=== PATIENT | female | born 1955 | race Caucasian/White ===

== ENCOUNTER 2017-04-10 09:12 | Emergency (ER) | payer OTHER ==
[~2017-04-10] VITALS: Ht 157.5 cm; Wt 68.2 kg
[2017-04-10 10:06] LABS: BASO % 0.4 % (0.0-1.0); EOS # 0.1 10^3/uL (0.0-0.50); IMMATURE GRANULOCYTE % 0.2 % (0-0); LYMPH # 1.4 10^3/uL (1.5-4.5); LYMPH % 17.2 % (24.0-44.0); MEAN CORPUSCULAR VOLUME 91.1 fl (80.0-96.0); MONO # 0.5 10^3/uL (0.0-0.8); MONO % 5.6 % (0.0-5.0); NEUTROPHILS # 6.1 10^3/uL (1.8-7.7); NEUTROPHILS % 75.6 % (36.0-66.0); PLATELET COUNT, AUTOMATED 184 10^3/uL (150-450); RED CELL DISTRIBUTION WIDTH 11.6 % (11.5-14.5)
[2017-04-10] MEDS ORDERED: NS 1,000 ML IV ONE (10:30)
[2017-04-10] MEDS ORDERED: LEXA1TAB PO (10:33)
[2017-04-10 10:40] LABS: ANION GAP 8 MEQ/L (8-16); BLOOD UREA NITROGEN 14 MG/DL (7-18); CALCIUM LEVEL 8.7 MG/DL (8.8-10.2); CARBON DIOXIDE LEVEL 29 MEQ/L (21-32); CHLORIDE LEVEL 105 MEQ/L (98-107); CREATININE FOR GFR 0.85 MG/DL (0.55-1.02); GLOMERULAR FILTRATION RATE > 60.0 (>45); GLUCOSE, FASTING 122 MG/DL (80-110); MAGNESIUM LEVEL 1.8 MG/DL (1.8-2.4); POTASSIUM SERUM 3.9 MEQ/L (3.5-5.1); SODIUM LEVEL 142 MEQ/L (136-145)
[2017-04-10 12:01] VITALS: BP 164/77
--- NOTE | 2017-04-10 14:43 | ECGEPIP ---
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
--- NOTE | 2017-04-11 08:25 | ECGEPIP ---
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
--- NOTE | 2017-04-11 08:25 | ECGEPIP ---
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
--- NOTE | 2017-04-13 20:55 | HOLTMON ---
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 Rhythm was sinus for those episodes--one PAC was seen with the second episode. Heart rate variability was normal. There were rare PVC's and a moderate number of PAC's but no significant runs. One couplet PAC/PVC was seen (page 20). No significant ST events or pauses. No atrial fibrillation was seen. Unremarkable Holter monitor. Electronically Signed On 04-13-2017 20:54:35 EST by Chase Ontiveros
== END 2017-04-10 12:15 | disposition home or self-care (01) ==
LOC: M ED 09:12
DX: R55 Syncope and collapse (principal); F41.9 Anxiety disorder, unspecified; Z79.899 Other long term (current) drug therapy; Z88.5 Allergy status to narcotic agent; Z88.8 Allergy status to other drugs, medicaments and biological substances

== ENCOUNTER 2017-04-13 09:48 | Emergency (ER) | payer OTHER ==
[~2017-04-13] VITALS: Ht 157.5 cm; Wt 68.2 kg
[~2017-04-13 09:48] MED LIST: LEXA1TAB PO
[2017-04-13] MEDS ORDERED: ESCI20TA (09:58)
[2017-04-13] MEDS ORDERED: VITA100067 PO (09:58)
[2017-04-13 11:22] LABS: ABG BASE EXCESS 2.7 (-2.0-2.0); ABG HCO3 24.7 MEQ/L (22.0-26.0); ABG PARTIAL PRESSURE CO2 30.4 mmHg (35.0-45.0); ABG PARTIAL PRESSURE O2 87.2 mmHg (75.0-100.0); ABG STANDARD HCO3 26.9 MEQ/L (22.0-26.0); ABG TOTAL CO2 25.6 MEQ/L (23.0-31.0); ABG pH (ARTERIAL) 7.527 UNITS (7.350-7.450)
[2017-04-13 11:28] LABS: BASO % 0.6 % (0.0-1.0); EOS % 0.3 % (0.0-3.0); IMMATURE GRANULOCYTE % 0.4 % (0-0); LYMPH # 0.9 10^3/uL (1.5-4.5); LYMPH % 12.8 % (24.0-44.0); MEAN CORPUSCULAR HEMOGLOBIN 31.2 pg (27.0-33.0); MEAN CORPUSCULAR HGB CONC 34.8 g/dl (32.0-36.5); MEAN CORPUSCULAR VOLUME 89.7 fl (80.0-96.0); MONO # 0.3 10^3/uL (0.0-0.8); MONO % 3.7 % (0.0-5.0); NEUTROPHILS # 5.5 10^3/uL (1.8-7.7); NEUTROPHILS % 82.2 % (36.0-66.0); PLATELET COUNT, AUTOMATED 217 10^3/uL (150-450); RED CELL DISTRIBUTION WIDTH 11.7 % (11.5-14.5); WHITE BLOOD COUNT 6.7 10^3/uL (4.0-10.0)
[2017-04-13 12:01] LABS: ANION GAP 6 MEQ/L (8-16); BLOOD UREA NITROGEN 9 MG/DL (7-18); CALCIUM LEVEL 9.1 MG/DL (8.8-10.2); CARBON DIOXIDE LEVEL 28 MEQ/L (21-32); CHLORIDE LEVEL 108 MEQ/L (98-107); CREATININE FOR GFR 0.76 MG/DL (0.55-1.02); GLOMERULAR FILTRATION RATE > 60.0 (>45); GLUCOSE, FASTING 136 MG/DL (80-110); POTASSIUM SERUM 3.5 MEQ/L (3.5-5.1); SODIUM LEVEL 142 MEQ/L (136-145)
--- NOTE | 2017-04-13 12:20 | REP ---
CHEST, TWO VIEWS : COMPARISON: 08/25/2015 There is no evidence of acute infiltrate. No pleural effusion is seen. The heart is normal in size. The mediastinal silhouette is unremarkable. The visualized osseous structures are intact. There are mild degenerative changes of the spine. IMPRESSION: No acute pulmonary disease. Signed by Joshua Barnett MD 04/13/2017 12:42 P
[2017-04-13 13:24] VITALS: BP 179/81
--- NOTE | 2017-04-14 05:42 | ECGEPIP ---
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
== END 2017-04-13 13:27 | disposition home or self-care (01) ==
LOC: M ED 09:48
DX: J06.9 Acute upper respiratory infection, unspecified (principal); F41.9 Anxiety disorder, unspecified; R06.4 Hyperventilation

== ENCOUNTER → 2017-04-22 | Outpatient (REF) | payer OTHER ==
[~2017-04-22] MED LIST changes: +ASPI81TA85 PO; +CARA1TAB6 PO; +ESCI20TA PO; +LEXA1TAB2 PO; +PANT40TA2 PO; +PROT1TAB2 PO; +SUCR1TA PO; +VITA100066 PO; +VITA100067 PO
[2017-04-22 15:20] LABS: BASO % 0.4 % (0.0-1.0); EOS % 0.3 % (0.0-3.0); IMMATURE GRANULOCYTE % 0.3 % (0-0); LYMPH # 1.7 10^3/uL (1.5-4.5); LYMPH % 24.7 % (24.0-44.0); MEAN CORPUSCULAR HEMOGLOBIN 30.8 pg (27.0-33.0); MEAN CORPUSCULAR HGB CONC 33.4 g/dl (32.0-36.5); MEAN CORPUSCULAR VOLUME 92.2 fl (80.0-96.0); MONO # 0.4 10^3/uL (0.0-0.8); MONO % 5.1 % (0.0-5.0); NEUTROPHILS # 4.8 10^3/uL (1.8-7.7); NEUTROPHILS % 69.2 % (36.0-66.0); PLATELET COUNT, AUTOMATED 279 10^3/uL (150-450); RED CELL DISTRIBUTION WIDTH 11.7 % (11.5-14.5); WHITE BLOOD COUNT 6.9 10^3/uL (4.0-10.0)
[2017-04-22 15:28] LABS: ALBUMIN/GLOBULIN RATIO 1.33 (1.00-1.93); ALKALINE PHOSPHATASE 91 U/L (45-117); ALT/SGPT 24 U/L (12-78); ANION GAP 8 MEQ/L (8-16); AST/SGOT 18 U/L (7-37); BILIRUBIN,TOTAL 0.6 MG/DL (0.2-1.0); BLOOD UREA NITROGEN 9 MG/DL (7-18); CALCIUM LEVEL 9.3 MG/DL (8.8-10.2); CARBON DIOXIDE LEVEL 31 MEQ/L (21-32); CHLORIDE LEVEL 103 MEQ/L (98-107); CREATININE FOR GFR 0.86 MG/DL (0.55-1.02); GLOMERULAR FILTRATION RATE > 60.0 (>45); GLUCOSE, FASTING 100 MG/DL (80-110); POTASSIUM SERUM 3.8 MEQ/L (3.5-5.1); SODIUM LEVEL 142 MEQ/L (136-145)
== END ==
LOC: M SFHCPLAZ 13:45
PROVIDERS: ATTEND Nurse Practitioner Family
DX: R05 Cough (principal); R07.89 Other chest pain

== ENCOUNTER → 2017-04-22 | Outpatient (CLI) | payer OTHER ==
--- NOTE | 2017-04-22 15:22 | REP ---
CT chest without contrast: History: Chest pain. Comparison chest x-ray April 13, 2017. CT findings: There is a noncalcified granuloma in the right lower lobe posteriorly. This shows a central pattern of calcification and a maximum transverse diameter of 16 mm. No other significant pulmonary nodule is seen. No infiltrate or pleural effusion is seen. There is a granulomatous calcification in the right infrahilar region. No hilar adenopathy is seen. No evidence of mediastinal mass or adenopathy. Normal adrenals are seen. There are calcified gallstones in the dependent portion of the gallbladder. Bone window settings show no bony destructive lesion. Impression: No active cardiopulmonary disease. Old granulomatous changes right base. Cholelithiasis. Signed by Néstor Joyce MD 04/22/2017 04:09 P
== END ==
LOC: M RAD 14:41
PROVIDERS: ATTEND Nurse Practitioner Family
DX: R07.89 Other chest pain (principal)

== ENCOUNTER 2017-04-23 08:43 | Inpatient (IN) | payer OTHER ==
[~2017-04-23] VITALS: Ht 157.5 cm; Wt 65.9 kg
[~2017-04-23 08:43] MED LIST changes: -ASPI81TA85 PO; -CARA1TAB6 PO; -LEXA1TAB2 PO; -PANT40TA2 PO; -PROT1TAB2 PO; -SUCR1TA PO; -VITA100066 PO
[2017-04-23] MEDS ORDERED: ASPI81TA85 PO (08:54)
[2017-04-23] MEDS ORDERED: ONDANSETRON 4MG/2ML VIAL (J2405) IV ONE (09:15)
[2017-04-23] MEDS ORDERED: NS 1,000 ML IV ONE ×2 (09:15→12:30)
[2017-04-23 09:45] LABS: BASO % 0.5 % (0.0-1.0); EOS % 0.4 % (0.0-3.0); IMMATURE GRANULOCYTE % 0.3 % (0-0); LYMPH # 1.4 10^3/uL (1.5-4.5); LYMPH % 18.8 % (24.0-44.0); MEAN CORPUSCULAR HGB CONC 34.1 g/dl (32.0-36.5); MEAN CORPUSCULAR VOLUME 90.9 fl (80.0-96.0); MONO # 0.4 10^3/uL (0.0-0.8); MONO % 5.1 % (0.0-5.0); NEUTROPHILS # 5.6 10^3/uL (1.8-7.7); NEUTROPHILS % 74.9 % (36.0-66.0); PLATELET COUNT, AUTOMATED 278 10^3/uL (150-450); RED CELL DISTRIBUTION WIDTH 11.8 % (11.5-14.5); WHITE BLOOD COUNT 7.5 10^3/uL (4.0-10.0)
[2017-04-23 10:11] LABS: ALBUMIN 4.1 GM/DL (3.2-5.2); ALBUMIN/GLOBULIN RATIO 1.24 (1.00-1.93); ALKALINE PHOSPHATASE 92 U/L (45-117); ALT/SGPT 22 U/L (12-78); AMYLASE 46 U/L (25-115); ANION GAP 7 MEQ/L (8-16); AST/SGOT 19 U/L (7-37); BILIRUBIN,DIRECT 0.1 MG/DL (0.0-0.2); BILIRUBIN,TOTAL 0.8 MG/DL (0.2-1.0); BLOOD UREA NITROGEN 9 MG/DL (7-18); CALCIUM LEVEL 9.6 MG/DL (8.8-10.2); CARBON DIOXIDE LEVEL 31 MEQ/L (21-32); CHLORIDE LEVEL 103 MEQ/L (98-107); CREATININE FOR GFR 0.89 MG/DL (0.55-1.02); GLOMERULAR FILTRATION RATE > 60.0 (>45); GLUCOSE, FASTING 122 MG/DL (80-110); POTASSIUM SERUM 4.1 MEQ/L (3.5-5.1); SODIUM LEVEL 141 MEQ/L (136-145); TOTAL PROTEIN 7.4 GM/DL (6.4-8.2)
--- NOTE | 2017-04-23 10:18 | REP ---
Clinical: Nausea and vomiting. Technique: Barnett scale ultrasound using curved array transducer. Findings: The gallbladder demonstrates multiple mobile gallstones without wall thickening or pericholecystic fluid. No sonographic Mayorga's sign was elicited. A small 3 mm choledocholith in the common bile duct cannot be excluded. There is no associated bile duct dilatation and the common bile duct measures 5.4 mm diameter. The liver and pancreas are normal in contour, size, and echogenicity without focal hepatic or pancreatic lesions identified. The right kidney is normal in reniform shape without hydronephrosis and measures 9.4 x 3.9 x 3.6 cm. No ascites. Visualized portions of the abdominal aorta normal. Impression: Cholelithiasis and possible choledocholithiasis without further sonographic evidence to suggest acute cholecystitis. Signed by Leonides Sosa MD 04/23/2017 10:09 A
[2017-04-23] MEDS ORDERED: LORazepam 2 MG/ML VIAL (J2060) IV STA ×2 (10:49→11:00)
[2017-04-23] MEDS ORDERED: PROMETHAZINE INJ 25 MG/ML VIAL (J2550) IV ONE (12:30)
[2017-04-23] MEDS ORDERED: NS 1,000 ML IV SCH (14:07)
--- NOTE | 2017-04-23 14:36 | HPEPDOC ---
General Date of Admission Apr 23, 2017 at 14:07 Primary Care Physician: ROXANA STEPHENSON NP Attending Physician: Dell Judge MD Chief Complaint The patient is a 62-year-old female admitted with a reason for visit of Choledocholithiasis. History of Present Illness 62-year-old female with past medical history of anxiety/depression, vitamin D deficiency, and allergic rhinitis presents to the ER for the chief complaint of abdominal pain over the last 3-4 days. The patient states that the abdominal pain mostly in the upper quadrants, started suddenly, and was associated with a few episodes of nonbilious vomiting. She describes the abdominal pain as sharp, 8 out of 10 in intensity at its worst, intermittent in frequency, with no specific aggravating or alleviating factors. She reports that she has not been able to keep any food down due to nausea/vomiting. She denies any associated fevers, chills, chest pain, sick contacts, recent travel, or any other acute complaints. In the ER, the patient was noted to have a normal white blood cell count, and LFTs plus lipase/amylase levels within normal limits. However, an ultrasound of the right upper quadrant revealed cholelithiasis and possible choledocholithiasis. GI was consulted in the ER, and has recommended to obtain an MRCP. The patient will be admitted to the hospitalist service for further evaluation and management. Home Medications Scheduled Aspirin (Aspir-81) 81 Mg Tab, 81 MG PO DAILY, (Reported) Escitalopram Oxalate (Escitalopram Oxalate) 20 Mg Tab, 20 MG PO QHS, (Reported) Vitamin D (Vitamin D) 1,000 Unit Cap, 1,000 UNIT PO DAILY, (Reported) Allergies Coded Allergies: Codeine (Verified Allergy, Unknown, SOB LIGHTHEADED, 04/10/17) Duloxetine (Verified Allergy, Unknown, RASH, 04/10/17) Past Medical History Medical History As noted in HPI. Surgical History OVARIAN CYST COLONOSCOPY - (INTERNAL HEMORRHOIDS, MULTIPLE DIVERTICULA), DR. 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 Review of Symptoms Other systems 10 point review of systems negative unless otherwise specified in HPI. Physical Examination General Exam: Positive: Alert, Cooperative, No Acute Distress, Other (anxious appearing) ENT Exam: Positive: Atraumatic, Negative: Mucous membr. moist/pink (dry mucous membranes) Neck Exam: Negative: JVD Chest Exam: Positive: Clear to auscultation, Normal air movement Heart Exam: Positive: Rate Normal, Normal S1, Normal S2 Abdomen Exam: Positive: Soft, Tenderness (mild tenderness to deep palpation in the upper quadrants. No rebound tenderness, guarding, or rigidity noted.) Extremity Exam: Negative: Tenderness, Swelling Psych Exam: Positive: Oriented x 3 Vital Signs Vital Signs Date Time Temp Pulse Resp B/P (MAP) Pulse Ox O2 Delivery O2 Flow Rate FiO2 04/23/17 13:22 98.4 70 18 158/71 (100) 99 Room Air Laboratory Data Labs 24H Laboratory Tests 2 04/23/17 09:36: Immature Granulocyte % (Auto) 0.3H, White Blood Count 7.5, Red Blood Count 4.96 , Hemoglobin 15.4, Hematocrit 45.1, Mean Corpuscular Volume 90.9, Mean Corpuscular Hemoglobin 31.0, Mean Corpuscular Hemoglobin Concent 34.1, Red Cell Distribution Width 11.8, Platelet Count 278, Neutrophils (%) (Auto) 74.9H, Lymphocytes (%) (Auto) 18.8L, Monocytes (%) (Auto) 5.1H, Eosinophils (%) (Auto) 0.4, Basophils (%) (Auto) 0.5, Neutrophils # (Auto) 5.6, Lymphocytes # (Auto) 1.4L, Monocytes # (Auto) 0.4, Eosinophils # (Auto) 0.0, Basophils # (Auto) 0.0, Immature Granulocyte # (Auto) 0.0, Nucleated Red Blood Cells % (auto) 0.0, Urine Appearance CLEAR, Urine Color COLORLESS, Urine pH 6.0, Urine Specific [place] 1.001L, Urine Protein NEGATIVE, Urine Glucose (UA) NEGATIVE, Urine Ketones NEGATIVE, Urine Urobilinogen 0.2, Urine Bilirubin NEGATIVE, Urine Leukocyte Esterase NEGATIVE, Urine Blood NEGATIVE, Urine Nitrite NEGATIVE, Urine WBC (Auto) 0, Urine RBC (Auto) 0, Urine Hyaline Casts (Auto) 0, Urine Bacteria (Auto) NEGATIVE, Urine Squamous Epithelial Cells 0, Urine Sperm (Auto) , Anion Gap 7L, Glomerular Filtration Rate > 60.0, Lactic Acid Level 2.0, Calcium Level 9.6, Aspartate Amino Transf (AST/SGOT) 19, Alanine Aminotransferase (ALT/SGPT) 22, Alkaline Phosphatase 92, Total Bilirubin 0.8, Direct Bilirubin 0.1, Total Protein 7.4, Albumin 4.1, Albumin/Globulin Ratio 1.24, Amylase Level 46, Lipase 121 CBC/BMP Laboratory Tests 04/23/17 09:36 Red Blood Count 4.96, Mean Corpuscular Volume 90.9, Mean Corpuscular Hemoglobin 31.0, Mean Corpuscular Hemoglobin Concent 34.1, Red Cell Distribution Width 11.8 , Neutrophils (%) (Auto) 74.9 H, Lymphocytes (%) (Auto) 18.8 L, Monocytes (%) ( Auto) 5.1 H, Eosinophils (%) (Auto) 0.4, Basophils (%) (Auto) 0.5, Neutrophils # (Auto) 5.6, Lymphocytes # (Auto) 1.4 L, Monocytes # (Auto) 0.4, Eosinophils # (Auto) 0.0, Basophils # (Auto) 0.0 Plan / VTE VTE Prophylaxis Ordered?: Yes Plan Plan RUQ Pain 2/2 Cholelithiasis, possible Choledocholithiasis U/S of the Gallbladder noted GI consulted in the ER--We will obtain an MRCP LFTs, Amylase, Lipase wnl WBC wnl, patient afebrile We will empirically cover the patient with Meropenem IVF Hydration ordered We will keep the patient NPO for now Anxiety/Depression Ativan prn DVT Prophylaxis SCDs/TEDs (No AC in case of intervention) The patient will be admitted to the service of the [facility]. KENN JOHNSON MD Apr 23, 2017 14:36
[2017-04-23 15:15] VITALS: BP 154/68
[2017-04-23] MEDS: MEROPENEM INJ 1 GM in APPROPRIATE DILUENT 1 EA IV SCH ×2 (15:45→22:42)
[2017-04-23] MEDS ORDERED: ACETAMINOPHEN TAB 650MG DOSE (2X325MG) PO PRN (16:15)
[2017-04-23 20:00] VITALS: BP 158/74
--- NOTE | 2017-04-23 20:10 | REPUSA ---
MRI of the abdomen without contrast Clinical History: gallstones. Pain. Technique: Multiecho, Multiplanar MRI images of the abdomen were obtained without administration of c ontrast. Comparison: None. Findings: Several small gallstones are seen within the gallbladder. There is no gallbladder wall thi ckening or pericholecystic free fluid. The biliary and pancreatic ducts are unremarkable. The common bile duct measures 3 mm in diameter and is within normal limits. No obstructing lesion is identified. The liver, spleen, pancreas, kidneys, and adrenal glands are unremarkable. The aorta demonstrates no rmal caliber and contour. There is no evidence of abdominal lymphadenopathy or ascites. The osseous s tructures are within normal limits. Impression: Cholelithiasis without evidence of acute cholecystitis. Otherwise unremarkable study.
[2017-04-23 23:03] VITALS: BP 133/67
[2017-04-24 02:00] VITALS: BP 132/66
[2017-04-24 05:56] LABS: MEAN CORPUSCULAR HGB CONC 33.6 g/dl (32.0-36.5); MEAN CORPUSCULAR VOLUME 92.4 fl (80.0-96.0); PLATELET COUNT, AUTOMATED 213 10^3/uL (150-450); WHITE BLOOD COUNT 5.4 10^3/uL (4.0-10.0)
[2017-04-24 06:00] VITALS: BP 157/70
[2017-04-24] MEDS: MEROPENEM INJ 1 GM in APPROPRIATE DILUENT 1 EA IV SCH ×3 (06:09→23:18)
[2017-04-24] MEDS: ONDANSETRON 4MG/2ML VIAL (J2405) IV PRN ×2 (06:20→18:09)
[2017-04-24 06:36] LABS: ALBUMIN 2.9 GM/DL (3.2-5.2); ALBUMIN/GLOBULIN RATIO 1.12 (1.00-1.93); ALKALINE PHOSPHATASE 65 U/L (45-117); ALT/SGPT 17 U/L (12-78); ANION GAP 8 MEQ/L (8-16); AST/SGOT 17 U/L (7-37); BILIRUBIN,TOTAL 0.8 MG/DL (0.2-1.0); BLOOD UREA NITROGEN 7 MG/DL (7-18); CALCIUM LEVEL 7.8 MG/DL (8.8-10.2); CARBON DIOXIDE LEVEL 29 MEQ/L (21-32); CHLORIDE LEVEL 110 MEQ/L (98-107); CREATININE FOR GFR 0.74 MG/DL (0.55-1.02); GLOMERULAR FILTRATION RATE > 60.0 (>45); GLUCOSE, FASTING 86 MG/DL (80-110); MAGNESIUM LEVEL 2.2 MG/DL (1.8-2.4); POTASSIUM SERUM 3.4 MEQ/L (3.5-5.1); SODIUM LEVEL 147 MEQ/L (136-145); TOTAL PROTEIN 5.5 GM/DL (6.4-8.2)
[2017-04-24] MEDS: LORazepam 2 MG/ML VIAL (J2060) IV PRN (08:21)
--- NOTE | 2017-04-24 09:49 | IPNPDOC ---
Subjective Date Seen The patient was seen on 04/24/17. Subjective Chief Complaint/HPI The patient is a 62-year-old female admitted with a reason for visit of Choledocholithiasis. Constitutional: Denies: Chills ENT: Denies: Head Aches Skin: Denies: Rash Pulmonary: Denies: Dyspnea, Cough, Pleuritic Chest Pain Cardiovascular: Denies: Chest Pain, Palpitations, Orthopnea Gastrointestinal: Reports: Nausea (limits ability to eat, taking only crackers over past couple of weeks), Abdominal Pain Genitourinary: Denies: Dysuria, Incontinence Hematologic: Denies: Bruising Endocrine: Denies: Polydipsia Neurological: Reports: Weakness (frequently first thing in am, feels sweaty and lightheaded with standing.) Objective Physical Examination General Exam: Positive: Alert, Cooperative, No Acute Distress, Other (anxious appearing) ENT Exam: Positive: Atraumatic, Negative: Mucous membr. moist/pink (dry mucous membranes) Neck Exam: Negative: JVD Chest Exam: Positive: Clear to auscultation, Normal air movement Heart Exam: Positive: Rate Normal, Normal S1, Normal S2 Abdomen Exam: Positive: Soft, Tenderness (mild tenderness to deep palpation in the upper quadrants. No rebound tenderness, guarding, or rigidity noted.) Extremity Exam: Negative: Tenderness, Swelling Psych Exam: Positive: Oriented x 3 Assessment /Plan Problems (1) Cholelithiasis Status: Acute Response to Treatment: Stable Problem Specific Plan: Consult Specialist Problem Text: U/S showed stones in GB and maybe common duct but MRCP was clear. LFT's were normal, so no surprise. WBC not increased. She has been having symptoms of food intolerance with nausea, sweating. No exercise limitations or exercise triggered symptoms (2) Vasovagal syncope Status: Acute Response to Treatment: Stable Problem Text: Had fainting episode that seems consistent with this diagnosis recently. Becomes sweaty and light headed with current RUQ symptoms (3) Anxiety reaction Status: Acute Response to Treatment: Stable Problem Text: lorazepam ordered q12 prn. will also continue her usual escitalopram (4) Mixed hyperlipidemia Status: Chronic Response to Treatment: Stable Plan/VTE VTE Prophylaxis Ordered?: Yes VS, I&O, 24H, Fishbone Vital Signs/I&O Vital Signs Date Time Temp Pulse Resp B/P (MAP) Pulse Ox O2 Delivery O2 Flow Rate FiO2 04/24/17 06:00 97.5 85 18 157/70 (99) 96 Room Air I&O- Last 24 Hours up to 6 AM 04/25/17 06:00 Intake Total 50 ml Balance 50 ml Laboratory Data 24H LABS Laboratory Tests 2 04/24/17 05:25: Nucleated Red Blood Cells % (auto) 0.0, Anion Gap 8, Glomerular Filtration Rate > 60.0, Blood Urea Nitrogen 7, Creatinine 0.74, Sodium Level 147H, Potassium Level 3.4L, Chloride Level 110H, Carbon Dioxide Level 29, Calcium Level 7.8#L, Aspartate Amino Transf (AST/SGOT) 17, Alanine Aminotransferase (ALT/SGPT) 17, Alkaline Phosphatase 65, Total Bilirubin 0.8, Total Protein 5.5#L, Albumin 2.9#L , Magnesium Level 2.2, Albumin/Globulin Ratio 1.12 CBC/BMP Laboratory Tests 04/24/17 05:25 Red Blood Count 4.22, Mean Corpuscular Volume 92.4, Mean Corpuscular Hemoglobin 31.0, Mean Corpuscular Hemoglobin Concent 33.6, Red Cell Distribution Width 12.0 , Calcium Level 7.8 #L, Aspartate Amino Transf (AST/SGOT) 17, Alanine Aminotransferase (ALT/SGPT) 17, Alkaline Phosphatase 65, Total Bilirubin 0.8, Total Protein 5.5 #L, Albumin 2.9 #L Microbiology Microbiology 04/23/17 Blood Culture, Received Pending 04/23/17 Blood Culture, Received Pending Babar Edmonds MD Apr 24, 2017 09:49
[2017-04-24 10:00] VITALS: BP 144/68
[2017-04-24 14:00] VITALS: BP 142/69
[2017-04-24] MEDS ORDERED: PANT40TA2 PO (16:56)
--- NOTE | 2017-04-24 17:22 | DSES ---
DATE OF ADMISSION: 04/23/2017 DATE OF DISCHARGE: 04/24/2017 Patient was admitted overnight from the emergency department (ED). Hospitalist worked her up in the ED. Workup demonstrated presence of gallstone. There is some suggestion that the stone might have been involved being the common duct; therefore, magnetic resonance cholangiopancreatography (MRCP) was also ordered that was completed showing no ductal obstruction. Her liver tests were normal. She has morning nausea. She has had episodes of vasodepressor syncope, nausea, sweating with episodes of lightheadedness and presyncope. She came to the ED with these complaints over the past 2 weeks or so. On examination this morning, I found to have some right upper quadrant tenderness on deep palpation but no true positive Mayorga's. Ultrasound did not show pericolic fluid or gallbladder swelling. She does not have typical postprandial biliary colic. Dr. Templeton saw her in consultation and found that she was likely to do well if sent home; therefore, patient will be discharge this evening if she tolerates her evening meal without difficulty, and if she fails, if she develops nausea postprandially, she will be kept overnight. She will be sent home on Protonix 40 mg by mouth daily with a plan to follow up with Dr. Templeton in 1 week with interval low-fat diet. Activity will be as tolerated. DISCHARGE DIAGNOSES: 1. Cholelithiasis. 2. Gastritis. 3. Vasodepressor presyncope. She will go home on pantoprazole 40 mg daily. Continue her vitamin D and escitalopram. Aspirin 81 mg will be stopped until the full nature of her upper gastrointestinal (GI) problem can be elucidated.
--- NOTE | 2017-04-24 17:56 | CR ---
DATE OF CONSULTATION: 04/24/2017 The patient is a 62-year-old female whom I saw originally with her , who was supposed to be getting an inguinal hernia repair, and at that time she fainted in the preoperative holding area. When she fainted she had blood pressures that were persistently decreased for a significant amount of time. Did not complain of any chest pain and has started her workup for a cardiac issue. It seems as though it was a simple fainting episode that just was prolonged compared to normal. She was taking some medication for a cold as well as continues on her antianxiety medication. Since that time, however, she has not had a poor appetite, has been nauseated, and not able to eat very well. She has been fatigued and came into the emergency room with abdominal pain. She stated that she did not have true pain, mostly just nausea, although the report at the time of her admissions states that she was complaining of pain. She is such an anxious individual, I am unsure if her history is completely reliable here today, given that she desires discharge. In any case, was worked up in the emergency room and was admitted having a normal white count, normal liver function tests; however, an ultrasound showed some gallstones as well as possible choledocholithiasis. She ended up having an magnetic resonance cholangiopancreatography (MRCP), which showed no evidence of choledocholithiasis. She continues to have some intermittent nausea without any right upper quadrant pain. She does not complain of any specific biliary colic. No pain radiating to her right shoulder blade area. She has not had any acholic stools. No bilirubinuria. PAST MEDICAL HISTORY: Significant for: 1. History of ovarian cyst. 2. History of colonoscopy. 3. History of anxiety/depression. 4. History of allergic rhinitis with ongoing symptoms of upper respiratory tract infection. PHYSICAL EXAMINATION: Reveals a 62-year-old female who looks stated age. HEENT: Unremarkable. NECK: Supple without adenopathy. LUNGS: Clear to auscultation. HEART: Regular. ABDOMEN: Soft, nondistended, nontender. EXTREMITIES: Warm and well perfused. White count is normal. Liver function tests (LFTs) are normal. IMPRESSION AND PLAN: The patient has some gallstones, but given her nausea and her upper gastrointestinal (GI) complaints, I wonder if she has some element of gastritis that is contributing to her nausea issues. Unfortunately, she denies any specific right upper quadrant pain at this time associated with food intake, and although it sounds as though initially on admission she had a history that was much more consistent with this, today she seems to be less convinced that she had any of those specific findings. Thus at this point, it is suggestive of some possible gastritis that has been ongoing with exacerbation by some postnasal drip, medications she is taking for her cold, and a poor by mouth intake. At this point, I would like to start her on some proton-pump inhibitors, and I do feel that once she is cleared from a cardiology standpoint this Thursday, proceeding with an upper endoscopy is reasonable. If this is normal, then will discuss possible laparoscopic cholecystectomy as an outpatient. At this point as well, the patient is extremely anxious about proceeding with any type of operative intervention and seems almost to tachypneic by the end of our discussion as we start to talk about this more. This may suggest that she may need some of her antianxiety medications changed to some extent. I will defer to primary care concerning this issue.
[2017-04-24 18:00] VITALS: BP 146/69
[2017-04-24] MEDS: ESCITALOPRAM OXALATE 10 MG TAB (LEXAPRO) PO SCH (21:53)
[2017-04-24] MEDS: POTASSIUM CHLORIDE 10 MEQ SR TABLET PO SCH (21:54)
[2017-04-24] MEDS: PANTOPRAZOLE 40MG INJ (PROTONIX) (C9113) IV SCH (21:57)
[2017-04-24 22:00] VITALS: BP 138/78
[2017-04-25 02:00] VITALS: BP 142/77
[2017-04-25] MEDS: ONDANSETRON 4MG/2ML VIAL (J2405) IV PRN (05:42)
[2017-04-25] MEDS: LORazepam 2 MG/ML VIAL (J2060) IV PRN ×2 (05:51→22:14)
[2017-04-25 06:00] VITALS: BP 148/72
[2017-04-25 06:07] LABS: MEAN CORPUSCULAR HEMOGLOBIN 31.3 pg (27.0-33.0); MEAN CORPUSCULAR HGB CONC 34.5 g/dl (32.0-36.5); MEAN CORPUSCULAR VOLUME 90.8 fl (80.0-96.0); PLATELET COUNT, AUTOMATED 241 10^3/uL (150-450); RED CELL DISTRIBUTION WIDTH 11.7 % (11.5-14.5); WHITE BLOOD COUNT 7.1 10^3/uL (4.0-10.0)
[2017-04-25 06:28] LABS: ALBUMIN 3.6 GM/DL (3.2-5.2); ALBUMIN/GLOBULIN RATIO 1.29 (1.00-1.93); ALKALINE PHOSPHATASE 76 U/L (45-117); ALT/SGPT 19 U/L (12-78); ANION GAP 8 MEQ/L (8-16); AST/SGOT 19 U/L (7-37); BILIRUBIN,TOTAL 0.8 MG/DL (0.2-1.0); BLOOD UREA NITROGEN 7 MG/DL (7-18); CARBON DIOXIDE LEVEL 28 MEQ/L (21-32); CHLORIDE LEVEL 109 MEQ/L (98-107); CREATININE FOR GFR 0.96 MG/DL (0.55-1.02); GLOMERULAR FILTRATION RATE > 60.0 (>45); GLUCOSE, FASTING 104 MG/DL (80-110); MAGNESIUM LEVEL 2.4 MG/DL (1.8-2.4); POTASSIUM SERUM 3.9 MEQ/L (3.5-5.1); SODIUM LEVEL 145 MEQ/L (136-145); TOTAL PROTEIN 6.4 GM/DL (6.4-8.2)
[2017-04-25] MEDS: MEROPENEM INJ 1 GM in APPROPRIATE DILUENT 1 EA IV SCH (06:42)
--- NOTE | 2017-04-25 07:36 | ECGEPIP ---
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
[2017-04-25] MEDS: PANTOPRAZOLE 40MG INJ (PROTONIX) (C9113) IV SCH ×2 (09:15→20:55)
[2017-04-25] MEDS: POTASSIUM CHLORIDE 10 MEQ SR TABLET PO SCH ×2 (09:15→20:55)
[2017-04-25] MEDS ORDERED: GI COCKTAIL 50ML BTL(HYOSCYAMINE/MAALOX/LIDOCAINE VISCOUS)(1:3:1) PO PRN (09:45)
[2017-04-25 10:00] VITALS: BP 134/64
[2017-04-25] MEDS ORDERED: SUCRALFATE 1 GM TAB PO ONE (11:00)
[2017-04-25] MEDS ORDERED: GASTROGRAFIN SOLUTION 30ML PO ONE (11:00)
--- NOTE | 2017-04-25 11:27 | IPNPDOC ---
Subjective Date Seen The patient was seen on 04/25/17. Subjective Chief Complaint/HPI The patient is a 62-year-old female admitted with a reason for visit of Choledocholithiasis. Events since last encounter Patient complaining of centrally located abdominal pain which started this morning after she ate some cereal and banana. Constitutional: Denies: Chills, Fever Pulmonary: Reports: Dyspnea (secondary to anxiety) Cardiovascular: Denies: Chest Pain Gastrointestinal: Reports: Nausea, Abdominal Pain, Denies: Vomiting Psych: Reports: Anxiety Objective Physical Examination General Exam: Positive: Alert, Cooperative, Mild Distress Chest Exam: Positive: Clear to auscultation, Normal air movement, Negative: Rales, Rhonchi, Wheezing Heart Exam: Positive: Rate Normal, Normal S1, Normal S2, Negative: Gallops, Murmurs, Rubs Abdomen Exam: Positive: Soft, Tenderness (epigastric) Extremity Exam: Negative: Tenderness, Swelling Psych Exam: Positive: Anxiety, Oriented x 3 Assessment /Plan Problems (1) Cholelithiasis Status: Acute Response to Treatment: Stable Problem Specific Plan: Consult Specialist Problem Text: 04/25: Patient has been unable to tolerate food, case was discussed with Dr. Templeton. Orders were placed for Carafate 1 g by mouth every before meals, daily at bedtime, GI cocktail, CT of abdomen and pelvis without contrast followed by IV and PO contrast. 04/24: U/S showed stones in GB and maybe common duct but MRCP was clear. LFT's were normal, so no surprise. WBC not increased. She has been having symptoms of food intolerance with nausea, sweating. No exercise limitations or exercise triggered symptoms (2) Vasovagal syncope Status: Acute Response to Treatment: Stable Problem Text: 04/24: Had fainting episode that seems consistent with this diagnosis recently. Becomes sweaty and light headed with current RUQ symptoms (3) Anxiety reaction Status: Acute Response to Treatment: Stable Problem Text: 04/25: Patient with continued anxiety, we will increase her dose of lorazepam to 0.5 mg IV every 6 hours when necessary 04/24: lorazepam ordered q12 prn. will also continue her usual escitalopram (4) Mixed hyperlipidemia Status: Chronic Response to Treatment: Stable Plan/VTE VTE Prophylaxis Ordered?: Yes Plan Diet: Make NPO (after midnight) VS, I&O, 24H, Fishbone Vital Signs/I&O Vital Signs Date Time Temp Pulse Resp B/P (MAP) Pulse Ox O2 Delivery O2 Flow Rate FiO2 04/25/17 10:00 99.0 78 18 134/64 (87) 96 Room Air I&O- Last 24 Hours up to 6 AM 04/26/17 06:00 Intake Total 190 ml Balance 190 ml Laboratory Data 24H LABS Laboratory Tests 2 04/25/17 05:50: Nucleated Red Blood Cells % (auto) 0.0, Anion Gap 8, Glomerular Filtration Rate > 60.0, Blood Urea Nitrogen 7, Creatinine 0.96, Sodium Level 145, Potassium Level 3.9, Chloride Level 109H, Carbon Dioxide Level 28, Calcium Level 9.0#, Aspartate Amino Transf (AST/SGOT) 19, Alanine Aminotransferase (ALT/SGPT) 19, Alkaline Phosphatase 76, Total Bilirubin 0.8, Total Protein 6.4, Albumin 3.6#, Magnesium Level 2.4, Albumin/Globulin Ratio 1.29 CBC/BMP Laboratory Tests 04/25/17 05:50 Red Blood Count 4.79, Mean Corpuscular Volume 90.8, Mean Corpuscular Hemoglobin 31.3, Mean Corpuscular Hemoglobin Concent 34.5, Red Cell Distribution Width 11.7 , Calcium Level 9.0 #, Aspartate Amino Transf (AST/SGOT) 19, Alanine Aminotransferase (ALT/SGPT) 19, Alkaline Phosphatase 76, Total Bilirubin 0.8, Total Protein 6.4, Albumin 3.6 # Microbiology Microbiology 04/23/17 Blood Culture - Preliminary, Resulted No growth after 24 hours . All specim... 04/23/17 Blood Culture - Preliminary, Resulted No growth after 24 hours . All specim... GME ATTESTATION GME ATTESTATION My faculty preceptor for this patient encounter was physically present during the encounter and was fully available. All aspects of the patient interview, examination, medical decision making process, and medical care plan development were reviewed and approved by the faculty preceptor. The faculty preceptor is aware and concurs with the plan as stated in the body of this note and will attest to such by his/her cosignature. ATTENDING NOTE I saw and examined Ms. Velazquez this morning; I discussed her care with Dr. Bourne and I agree with his note as documented. I discussed her care with Dr. Templeton. If she responds to carafate and a GI cocktail and improves and is able to tolerate good PO intake, we may be able to discharge tomorrow. Otherwise she may need to go for an EGD and/or cholecystectomy tomorrow based on results of her CT scan and how she is doing clinically - we will make her NPO after midnight in case surgery is needed. 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 I reassured her that she is unlikely to become addicted after using low-dose Ativan on PRN basis for a few days. She asked whether she could be switched to hydroxyzine - I offered to add this if that is her preference, but ultimately she decided to stay on Ativan. (KES) ROSE BOURNE DO Apr 25, 2017 11:27 LD ESTRADA MD Apr 25, 2017 13:37
[2017-04-25] MEDS ORDERED: GASTROGRAFIN SOLUTION 30ML (Q9963) PO ONE (11:30)
[2017-04-25] MEDS ORDERED: ISOVUE-370 76% 100ML VIAL (Q9967) As Ordered ONE (12:24)
[2017-04-25 13:15] VITALS: BP 138/67
[2017-04-25] MEDS ORDERED: MEROPENEM INJ 1 GM in APPROPRIATE DILUENT 1 EA IV SCH (15:00)
[2017-04-25 16:00] VITALS: BP 132/68
[2017-04-25] MEDS ORDERED: LORazepam 2 MG/ML VIAL (J2060) IV PRN (16:15)
[2017-04-25] MEDS: SUCRALFATE 1 GM TAB PO SCH ×2 (17:45→20:55)
[2017-04-25 20:00] VITALS: BP 135/69
--- NOTE | 2017-04-25 20:03 | IPN ---
DATE: 04/25/2017 SUBJECTIVE: The patient overall has had no right upper quadrant pain. She stated to the other physicians that she had some epigastric pain, although she really does not complain of pain so much as she complains of nausea, and is "not hungry." In general, I started her on minimal proton pump inhibitors yesterday, trying not to overwhelm her with too many changes given her significant and severe anxiety. However, today do feel that we need to be full court press on gastrointestinal (GI) treatment and possible evaluation. I discussed this with primary that we should give her GI cocktail, start her on some Carafate, and proceed with an upper GI. This was started earlier in the day and the patient overall has tolerated some crackers and some soup which she states is even more than she has been having lately, and states that she really is not having any significant problems since starting a new medications. I discussed with her this afternoon the findings of the CT scan which I interpreted. However, the final report is still pending. I instructed to go easy with dinner and see how she does. I did put her on the schedule for a laparoscopic cholecystectomy tomorrow if she did not tolerate food tonight. If she is tolerating food tonight, I do feel that she should be able to be discharged home. Unfortunately with her significant and severe anxiety, I do feel that if she tolerates food tonight and she wants to be discharged, that we can see how she does with breakfast and then plan on cancelling operative intervention for her. I am still not convinced that she has a classic history for symptomatic biliary colic, but it is reasonable to discuss this further with her. I contacted the nursing floor, discussed with nursing that she tolerated dinner, and at this point without any significant pain or discomfort, I anticipate that she will be able to be progressed or continue on a regular diet in the morning and be discharged home. However, if she has some recurrence of her nausea, discomfort overnight, we may reevaluate that in the morning and possibly proceed with laparoscopic cholecystectomy with a possible upper endoscopy if she still has ill-defined issues. I think overall her major issues are anxiety associated, and that needs to be addressed and makes her medical care very difficult. She will need that evaluated/followed up as an outpatient.
[2017-04-25] MEDS: ESCITALOPRAM OXALATE 10 MG TAB (LEXAPRO) PO SCH (20:54)
[2017-04-26] VITALS: BP 128/67
[2017-04-26 04:00] VITALS: BP 122/56
[2017-04-26 06:54] LABS: MEAN CORPUSCULAR HEMOGLOBIN 31.1 pg (27.0-33.0); MEAN CORPUSCULAR HGB CONC 34.1 g/dl (32.0-36.5); MEAN CORPUSCULAR VOLUME 91.2 fl (80.0-96.0); PLATELET COUNT, AUTOMATED 239 10^3/uL (150-450); RED CELL DISTRIBUTION WIDTH 11.8 % (11.5-14.5); WHITE BLOOD COUNT 7.8 10^3/uL (4.0-10.0)
--- NOTE | 2017-04-26 07:24 | REP ---
CT ABDOMEN AND PELVIS WITH CONTRAST: HISTORY: Abdominal pain. CONTRAST: Isovue-370, 75 mL. COMPARISON: 12/27/2010 Calcifications are present in the gallbladder consistent with cholelithiasis. The liver, pancreas, spleen, adrenal glands and kidneys are normal in appearance. There is no mass, adenopathy or free fluid. A 9 mm calcified granuloma is present in the right lower lobe. The visualized left lung is clear. Diverticula are present in the descending and sigmoid colon. The urinary bladder and uterus are normal in appearance. IMPRESSION: 1. Cholelithiasis. 2. Diverticulosis. 3. Old granulomatous disease. Signed by Cresencio Collins MD 04/26/2017 08:51 A
[2017-04-26 07:25] LABS: ALBUMIN 3.8 GM/DL (3.2-5.2); ALBUMIN/GLOBULIN RATIO 1.36 (1.00-1.93); ALKALINE PHOSPHATASE 78 U/L (45-117); ALT/SGPT 19 U/L (12-78); ANION GAP 7 MEQ/L (8-16); AST/SGOT 15 U/L (7-37); BILIRUBIN,TOTAL 0.8 MG/DL (0.2-1.0); BLOOD UREA NITROGEN 10 MG/DL (7-18); CALCIUM LEVEL 9.3 MG/DL (8.8-10.2); CARBON DIOXIDE LEVEL 30 MEQ/L (21-32); CHLORIDE LEVEL 107 MEQ/L (98-107); CREATININE FOR GFR 0.88 MG/DL (0.55-1.02); GLOMERULAR FILTRATION RATE > 60.0 (>45); GLUCOSE, FASTING 110 MG/DL (80-110); POTASSIUM SERUM 4.3 MEQ/L (3.5-5.1); SODIUM LEVEL 144 MEQ/L (136-145); TOTAL PROTEIN 6.6 GM/DL (6.4-8.2)
[2017-04-26 08:00] VITALS: BP 151/65
[2017-04-26] MEDS: PANTOPRAZOLE 40MG INJ (PROTONIX) (C9113) IV SCH (08:23)
[2017-04-26] MEDS: LORazepam 2 MG/ML VIAL (J2060) IV PRN (08:23)
[2017-04-26] MEDS: SUCRALFATE 1 GM TAB PO SCH (09:52)
[2017-04-26] MEDS: POTASSIUM CHLORIDE 10 MEQ SR TABLET PO SCH (09:52)
[2017-04-26] MEDS ORDERED: SUCR1TA PO (11:34)
--- NOTE | 2017-04-26 13:51 | IPN ---
DATE: 03/27/2017 Patient overall did quite well with her low-fat diet last night and has not had anymore epigastric pain, discomfort since that time. She is not having any fevers or chills and her white count continues to be within normal limits with being afebrile. Her liver function tests (LFTs) are still normal. Her nausea and epigastric discomfort, which she has vague description of, is better than it was previously. Her abdomen is still nontender, nondistended. IMPRESSION/PLAN: Patient has probable gastritis and she is being treated with proton pump inhibitors as well as Carafate, and I feel that is reasonable treatment for her. I would be glad to see her in a couple weeks and then we can decide whether to proceed with an upper endoscopy as an outpatient first or to proceed with additional treatment of her gallstones. At this point, I still think that she has asymptomatic gallstones. but given her very vague description of her abdominal pain, etc., it may be that she has some mild symptoms that she cannot isolate from the generalized nausea that she has. In any case, we will deal with this as an outpatient. More importantly, I do feel that she needs further treatment for her anxiety issues. Otherwise, perioperative treatment for her is going to be very difficult. She will have chronic anxiety associated with the preprocedure workup as well as the procedure itself and then postprocedure will be anxious about anything that is occurring to her, which even maybe normal postoperative changes.
--- NOTE | 2017-04-26 19:48 | DS.PDOC ---
Discharge Summary General Date of Admission Apr 23, 2017 at 14:07 Date of Discharge 04/26/17 Primary Care Physician: ROXANA HALL NP Attending Physician: NATACHA PURCELL MD Specialist/Consultants Involve: Bubba Templeton Jr Discharge Summary Consults: Gastroenterology General Surgery: Dr. Bubba Templeton Discharge diagnosis: 1. Gastritis 2. Cholelithiasis 3. Vasovagal Syncope Secondary diagnosis: 1. Anxiety 2. Depression 3. Vitamin D Deficiency 4. Allergic Rhinitis Hospital course: 62 yo F presented to [facility] ED on 04/23/17 for cc of abdominal pain 3-4 days prior to presentation located in the upper abdominal quadrants. Pain was sudden in onset and associated with some episodes of nonbilious vomiting. Abdominal was reported to be intermittent with no aggravating or alleviating factors. Was reported to be sharp. Patient was also c/o of nausea/vomiting and being intolerant to PO intake. In the ER, workup showed a normal WBC, normal LFTs, normal lipase/amylase levels. RUQ ultrasound had shown cholelithiasis and possible choledocholithiasis. GI was consulted and recommended to obtain an MRCP. MRCP was unremarkable and did not show evidence of choleycystitis, and had shown only cholelithiasis. Patient was empirically treated with meropenem, IVF hydration, and was kept NPO until 04/24/17 when it was advanced to clear liquids diet/advance as tolerated. General Surgery was consulted and recommended for patient to receive GI cocktail, carafate 1 g PO before meals and at HS, to start a PPI. A CT of the abdomen/pelvis without contrast followed by with IV & PO contrast were ordered. CT of the abdomen/pelvis showed: cholelithiasis, diverticulosis, and old granulomatous disease. Was otherwise unremarkable. Blood cx were negative x 72 hours. It was thought that patient's abdominal pain was likely due to her gastritis and her cholelithiasis may have been somewhat asymptomatic. However, this was difficult to distinguish as patient was a very anxious individual, and her anxiety could have also been the source of her abdominal pain/gastritis. Patient was also reported to have a fainting episode and several episodes of sweating, lightheadedness, nausea concurrently and it was thought that this was due to anxiety-induced vasovagal syncope. EKG done showed NSR. No hypotension or tachycardia was noted during hospital stay. Dr. Templeton had recommended considering a possible Cardiology consult. Of note, patient had severe anxiety during hospital stay and was treated several times with ativan PRN. She was also treated with her home dose of escitalopram 20 mg. Her anxiety may have been triggering some of her abdominal pain leading to her gastritis. She was eventually begun on a low fat diet and tolerated this without nausea/vomiting last night. This morning, patient was advanced to a regular diet and she also tolerated this without nausea/vomiting. Gastritis had improved since beginning GI cocktail, sucralfate, and PPI protonix. However. Dr. Templeton strongly recommends for patient to have anxiety managed as outpatient as it is interfering with her ability to undergo perioperative care if patient will need this in the future. Patient was given mechanical DVT prophylaxis with TEDs and SCDs vs. pharmacologic prophylaxis due to possible need for surgical intervention. Patient's condition has improved and she is clinically and hemodynamically stable for discharge today. Progress note on date of discharge: Subjective: Patient seen and examined at bedside today. Admits to waking up with nausea and abdominal pain, but states she felt very anxious. 0.5 mg of ativan was administered to her around 8:20 AM, and her nausea/abdominal pain disappeared. She tolerated dinner last night. Was able to eat half a turkey sandwich and keep down some gingerale. Denies nausea/vomiting last night. Was able to have breakfast this morning without nausea/vomiting or abdominal pain. Denies abdominal pain at this time. Denies fevers, chills, chest pain, SOB, nausea, vomiting, diarrhea, constipation. Admits to having one BM this morning. Objective: Vitals: T 97.3, P 101, RR 18, BP 151/65, Pulse Ox: 98% room air. General: Pleasant elderly female lying comfortably in bed. Awake, alert and oriented, verbal and able to answer questions appropriately. She does not appear to be in any acute distress. HEENT: Normocephalic atraumatic. Grossly normal hearing bilaterally. Neck: Supple. Heart: Regular rate and rhythm, normal S1-S2. No murmurs, rubs, clicks or gallops. Lungs: Clear to auscultation bilaterally. No wheezes, rales or rhonchi. Abdomen: Active bowel sounds, soft, no masses to palpation. (+)mild midepigastric tenderness to palpation with guarding but no rebound. (-)Mayorga's sign. Extremities: No clubbing, cyanosis, edema. Pulses: (+) 2 radial pulses bilaterally. Integumentary: no rashes or lesions noted. Psychiatric: Appropriate Mood but Anxious Affect. Labs: Please see below for full labs. CBC today WNL with no elevated WBC count. CMP WNL today. Blood cx: NGTD x 72 hours. Assessment/Plan: 62 yo F presented for abdominal pain likely secondary to gastritis. She was also found to have cholelithiasis and had some episodes of vasovagal syncope thought to be secondary to anxiety. Anxiety may have also been the trigger to her gastritis as patient had uncontrolled anxiety. Will discharge home today in stable condition with sucralfate ACHS, prilosec 40 mg qdaily. Have stopped aspirin as there was no clear indication for patient to take this. She will follow up with Dr. Bubba Templeton in 2 weeks as outpatient to evaluate for need for EGD or cholecystectomy, and whether her cholelithiasis is symptomatic. Patient is to follow up with PCP Roxana Hall for hospital follow up as well as for further management of severely uncontrolled anxiety & vasovagal syncope. Recommend consideration of Holtr monitor to rule out arrhythmia causing possible syncopal episodes. At this time, patient was only discharged home with her home dose of escitalopram 20 mg daily. Therapy change should be considered for anxiety medication. Disposition: Stable. Follow-up: PCP within 3-5 days with Roxana Hall [employer]USTOMER [employer] SAL[employer]ATE. Dr. Bubba Templeton in 2 weeks. Activity: As tolerated. Diet: Regular. Advance as tolerated. Medications on discharge: Please see below. Cc: Roxana Hall [employer] SAL[employer]ATE Time spent on discharge: 35 minutes. Vital Signs/I&Os Vital Signs Date Time Temp Pulse Resp B/P (MAP) Pulse Ox O2 Delivery O2 Flow Rate FiO2 04/26/17 08:00 97.3 101 18 151/65 (93) 98 Room Air I&O- Last 24 Hours up to 6 AM 04/27/17 06:00 Intake Total 360 ml Output Total 200 ml Balance 160 ml Laboratory Data Labs 24H Laboratory Tests 2 04/26/17 06:30: Nucleated Red Blood Cells % (auto) 0.0, Anion Gap 7L, Glomerular Filtration Rate > 60.0, Blood Urea Nitrogen 10, Creatinine 0.88, Sodium Level 144, Potassium Level 4.3, Chloride Level 107, Carbon Dioxide Level 30, Calcium Level 9.3, Aspartate Amino Transf (AST/SGOT) 15, Alanine Aminotransferase (ALT/SGPT) 19, Alkaline Phosphatase 78, Total Bilirubin 0.8, Total Protein 6.6, Albumin 3.8 , Albumin/Globulin Ratio 1.36 CBC/BMP Laboratory Tests 04/26/17 06:30 Red Blood Count 4.86, Mean Corpuscular Volume 91.2, Mean Corpuscular Hemoglobin 31.1, Mean Corpuscular Hemoglobin Concent 34.1, Red Cell Distribution Width 11.8 , Calcium Level 9.3, Aspartate Amino Transf (AST/SGOT) 15, Alanine Aminotransferase (ALT/SGPT) 19, Alkaline Phosphatase 78, Total Bilirubin 0.8, Total Protein 6.6, Albumin 3.8 Microbiology Microbiology 04/23/17 Blood Culture - Preliminary, Resulted No Growth after 72 hours. All specime... 04/23/17 Blood Culture - Preliminary, Resulted No Growth after 72 hours. All specime... Discharge Medications Scheduled Cholecalciferol (Vitamin D) 1,000 Unit Tab, 1,000 UNIT PO DAILY, (Reported) Escitalopram Oxalate (Lexapro) 20 Mg Tab, 20 MG PO DAILY, (Reported) Pantoprazole Sodium Sesquihydr (Protonix) 40 Mg Tab, 40 MG PO DAILY, (Reported) Sucralfate (Carafate) 1 Gm Tab, 1 GM PO ACHS, (Reported) 4 times per day take on an empty stomach Allergies Coded Allergies: Codeine (Verified Allergy, Unknown, SOB LIGHTHEADED, 04/27/17) Duloxetine (Verified Allergy, Unknown, RASH, 04/27/17) GME ATTESTATION GME ATTESTATION My faculty preceptor for this patient encounter was Dr. Natacha Purcell, and was physically present during the encounter and was fully available. All aspects of the patient interview, examination, medical decision making process, and medical care plan development were reviewed and approved by the faculty preceptor. The faculty preceptor is aware and concurs with the plan as stated in the body of this note and will attest to such by his/her cosignature. ATTENDING NOTE I saw and examined Ms. Velazquez on day of discharge; I discussed her care with Dr. Szymanski and I agree with her note as documented. (JOSE DE JESUS) KENN SZYMANSKI OGME-1 Apr 26, 2017 18:53 NATACHA PURCELL MD Apr 28, 2017 09:35
[2017-04-28] MEDS ORDERED: CARA1TAB6 PO (02:38)
[2017-04-28] MEDS ORDERED: VITA100066 PO (02:38)
[2017-04-28] MEDS ORDERED: LEXA1TAB2 PO (02:38)
[2017-04-28] MEDS ORDERED: PROT1TAB2 PO (02:38)
== END 2017-04-26 12:00 | disposition home or self-care (01) | DRG 392 ==
LOC: M ED 08:43 → M ED INP 14:07 → M ICU 15:12 → M MSPAV 22:55 → M PED 04-25 13:15
PROVIDERS: ADMIT Internal Medicine; ATTEND Family Medicine
DX: K29.70 Gastritis, unspecified, without bleeding (principal); F41.9 Anxiety disorder, unspecified; F32.9 Major depressive disorder, single episode, unspecified; E55.9 Vitamin D deficiency, unspecified; R55 Syncope and collapse; J30.9 Allergic rhinitis, unspecified; K80.20 Calculus of gallbladder without cholecystitis without obstruction; Z79.899 Other long term (current) drug therapy; Z88.5 Allergy status to narcotic agent; Z88.8 Allergy status to other drugs, medicaments and biological substances; Z79.82 Long term (current) use of aspirin; E78.5 Hyperlipidemia, unspecified

== ENCOUNTER → 2017-05-07 | Outpatient (REF) | payer OTHER ==
[~2017-05-07] MED LIST changes: +ASPI81TA85 PO; +CARA1TAB6 PO; +CLON0.5T PO; +ESCI10TA2 PO; +LEXA1TAB2 PO; +PANT40TA2 PO; +PROT1TAB2 PO; +SUCR1TA PO; +VITA100066 PO
[2017-05-07 16:51] LABS: FREE T4 1.15 NG/DL (0.76-1.46)
[2017-05-07 17:23] LABS: BASO % 0.4 % (0.0-1.0); EOS % 0.4 % (0.0-3.0); IMMATURE GRANULOCYTE % 0.2 % (0-0); LYMPH # 1.2 10^3/uL (1.5-4.5); LYMPH % 25.9 % (24.0-44.0); MEAN CORPUSCULAR HEMOGLOBIN 30.5 pg (27.0-33.0); MEAN CORPUSCULAR VOLUME 89.8 fl (80.0-96.0); MONO # 0.3 10^3/uL (0.0-0.8); MONO % 5.9 % (0.0-5.0); NEUTROPHILS # 3.1 10^3/uL (1.8-7.7); NEUTROPHILS % 67.2 % (36.0-66.0); PLATELET COUNT, AUTOMATED 225 10^3/uL (150-450); RED CELL DISTRIBUTION WIDTH 11.7 % (11.5-14.5); WHITE BLOOD COUNT 4.6 10^3/uL (4.0-10.0)
== END ==
LOC: M SFHCPLAZ 12:25
PROVIDERS: ATTEND Nurse Practitioner Family
DX: R53.83 Other fatigue (principal); F41.9 Anxiety disorder, unspecified

== ENCOUNTER 2017-05-20 09:28 | Emergency (ER) | payer OTHER ==
[2017-05-20] MEDS: LORazepam 1 MG TAB PO (11:23)
== END 2017-05-20 16:33 | disposition home or self-care (01) ==
LOC: M ED 09:28
DX: F41.8 Other specified anxiety disorders (principal); R00.1 Bradycardia, unspecified; K52.9 Noninfective gastroenteritis and colitis, unspecified; Z79.899 Other long term (current) drug therapy; Z88.5 Allergy status to narcotic agent; Z88.8 Allergy status to other drugs, medicaments and biological substances
CPT/HCPCS: 93005

== ENCOUNTER → 2017-07-02 | Outpatient (CLI) | payer OTHER ==
[2017-07-02 10:56] LABS: BASO % 0.7 % (0.0-1.0); EOS # 0.1 10^3/uL (0.0-0.50); EOS % 1.7 % (0.0-3.0); HEMATOCRIT 40.9 % (36.0-47.0); HEMOGLOBIN 14.2 g/dl (12.0-16.0); IMMATURE GRANULOCYTE % 0.2 % (0-3.0); LYMPH # 1.5 10^3/uL (1.5-4.5); LYMPH % 36.1 % (24.0-44.0); MEAN CORPUSCULAR HEMOGLOBIN 31.6 pg (27.0-33.0); MEAN CORPUSCULAR HGB CONC 34.7 g/dl (32.0-36.5); MEAN CORPUSCULAR VOLUME 91.1 fl (80.0-96.0); MONO # 0.3 10^3/uL (0.0-0.8); NEUTROPHILS # 2.3 10^3/uL (1.8-7.7); NEUTROPHILS % 54.3 % (36.0-66.0); PLATELET COUNT, AUTOMATED 184 10^3/uL (150-450); RED BLOOD COUNT 4.49 10^6/uL (4.00-5.40); RED CELL DISTRIBUTION WIDTH 11.6 % (11.5-14.5); WHITE BLOOD COUNT 4.2 10^3/uL (4.0-10.0)
[2017-07-02 11:23] LABS: ALBUMIN 4.2 GM/DL (3.2-5.2); ALBUMIN/GLOBULIN RATIO 1.62 (1.00-1.93); ALKALINE PHOSPHATASE 92 U/L (45-117); ALT/SGPT 26 U/L (12-78); ANION GAP 7 MEQ/L (8-16); AST/SGOT 23 U/L (7-37); BILIRUBIN,TOTAL 0.9 MG/DL (0.2-1.0); BLOOD UREA NITROGEN 14 MG/DL (7-18); C REACTIVE PROTEIN QUANTITATIV < 0.30 MG/DL (0.00-0.30); CALCIUM LEVEL 8.9 MG/DL (8.8-10.2); CARBON DIOXIDE LEVEL 30 MEQ/L (21-32); CHLORIDE LEVEL 104 MEQ/L (98-107); CREATININE FOR GFR 0.82 MG/DL (0.55-1.30); FREE T3 3.5 PG/ML (2.2-4.0); FREE T4 0.93 NG/DL (0.76-1.46); GLOMERULAR FILTRATION RATE > 60.0 (>45); GLUCOSE, FASTING 96 MG/DL (70-100); IMMUNOGLOBULIN G 545 MG/DL (681-1648); POTASSIUM SERUM 3.7 MEQ/L (3.5-5.1); SODIUM LEVEL 141 MEQ/L (136-145); TOTAL PROTEIN 6.8 GM/DL (6.4-8.2)
[2017-07-02 11:28] LABS: ANTI-STREPTOLYSIN O QUANT < 12.5 IU/ML (<214.0)
[2017-07-02 11:41] LABS: ERYTHROCYTE SEDIMENTATION RATE 2 mm/hr (0-30)
[2017-07-02 12:09] LABS: TOTAL 25(OH) VITAMIN D 41.7 NG/ML (30.0-100.0)
[2017-07-03 09:58] LABS: THYROGLOBULIN ANTIBODY 17.6 U/ML (<60.0); THYROID PEROXIDASE ANTIBODY 38.7 U/ML (<60.0)
== END ==
LOC: M LAB 09:28
DX: F33.2 Major depressive disorder, recurrent severe without psychotic features (principal)
CPT/HCPCS: 84443

== ENCOUNTER → 2017-09-21 | Outpatient (CLI) | payer OTHER ==
[2017-09-21 12:09] LABS: BASO % 0.6 % (0.0-1.0); EOS % 0.4 % (0.0-3.0); HEMATOCRIT 44.4 % (36.0-47.0); HEMOGLOBIN 15.2 g/dl (12.0-15.5); IMMATURE GRANULOCYTE % 0.2 % (0-3.0); LYMPH # 1.4 10^3/uL (1.5-4.5); MEAN CORPUSCULAR HEMOGLOBIN 31.3 pg (27.0-33.0); MEAN CORPUSCULAR HGB CONC 34.2 g/dl (32.0-36.5); MEAN CORPUSCULAR VOLUME 91.5 fl (80.0-96.0); MONO # 0.3 10^3/uL (0.0-0.8); MONO % 5.9 % (0.0-5.0); NEUTROPHILS % 63.9 % (36.0-66.0); PLATELET COUNT, AUTOMATED 226 10^3/uL (150-450); RED BLOOD COUNT 4.85 10^6/uL (4.00-5.40); RED CELL DISTRIBUTION WIDTH 11.4 % (11.5-14.5); WHITE BLOOD COUNT 4.8 10^3/uL (4.0-10.0)
[2017-09-21 12:55] LABS: ALBUMIN 4.1 GM/DL (3.2-5.2); ALBUMIN/GLOBULIN RATIO 1.41 (1.00-1.93); ALKALINE PHOSPHATASE 96 U/L (45-117); ALT/SGPT 25 U/L (12-78); ANION GAP 6 MEQ/L (8-16); AST/SGOT 22 U/L (7-37); BILIRUBIN,TOTAL 0.5 MG/DL (0.2-1.0); BLOOD UREA NITROGEN 12 MG/DL (7-18); CALCIUM LEVEL 8.9 MG/DL (8.8-10.2); CARBON DIOXIDE LEVEL 30 MEQ/L (21-32); CHLORIDE LEVEL 107 MEQ/L (98-107); CREATININE FOR GFR 0.93 MG/DL (0.55-1.30); FREE T4 0.98 NG/DL (0.76-1.46); GLOMERULAR FILTRATION RATE > 60.0 (>45); GLUCOSE, FASTING 93 MG/DL (70-100); POTASSIUM SERUM 4.1 MEQ/L (3.5-5.1); SODIUM LEVEL 143 MEQ/L (136-145)
== END ==
LOC: M WUC 10:15
DX: R07.9 Chest pain, unspecified (principal); F41.9 Anxiety disorder, unspecified
CPT/HCPCS: 84443

== ENCOUNTER 2017-10-10 18:33 | Emergency (ER) | payer OTHER | END 2017-10-10 19:45 | disposition home or self-care (01) | LOC: M ED 18:33 | DX: S93.492A Sprain of other ligament of left ankle, initial encounter (principal); W19.XXXA Unspecified fall, initial encounter; Y92.099 Unspecified place in other non-institutional residence as the place of occurrence of the external cause; Y93.9 Activity, unspecified; Y99.9 Unspecified external cause status; M54.9 Dorsalgia, unspecified; G43.909 Migraine, unspecified, not intractable, without status migrainosus; K57.90 Diverticulosis of intestine, part unspecified, without perforation or abscess without bleeding; Z87.440 Personal history of urinary (tract) infections; F41.9 Anxiety disorder, unspecified; Z79.899 Other long term (current) drug therapy; Z88.5 Allergy status to narcotic agent; Z88.8 Allergy status to other drugs, medicaments and biological substances | CPT/HCPCS: 73610 ==

== ENCOUNTER → 2017-11-26 | Outpatient (CLI) | payer OTHER | LOC: M WUC 18:21 | DX: M79.604 Pain in right leg (principal); M51.36 Other intervertebral disc degeneration, lumbar region | CPT/HCPCS: 72114 ==

== ENCOUNTER → 2017-11-26 | Outpatient (REF) | payer OTHER ==
[2017-11-26 16:00] LABS: TOTAL 25(OH) VITAMIN D 38.3 NG/ML (30.0-100.0)
[2017-11-26 16:06] LABS: ALBUMIN/GLOBULIN RATIO 1.54 (1.00-1.93); ALKALINE PHOSPHATASE 73 U/L (45-117); ALT/SGPT 25 U/L (12-78); ANION GAP 9 MEQ/L (8-16); AST/SGOT 29 U/L (7-37); BILIRUBIN,TOTAL 0.8 MG/DL (0.2-1.0); BLOOD UREA NITROGEN 11 MG/DL (7-18); CALCIUM LEVEL 8.8 MG/DL (8.8-10.2); CARBON DIOXIDE LEVEL 29 MEQ/L (21-32); CHLORIDE LEVEL 107 MEQ/L (98-107); CREATININE FOR GFR 0.89 MG/DL (0.55-1.30); FREE T4 1.04 NG/DL (0.76-1.46); GLOMERULAR FILTRATION RATE > 60.0 (>45); GLUCOSE, FASTING 91 MG/DL (70-100); MAGNESIUM LEVEL 2.1 MG/DL (1.8-2.4); POTASSIUM SERUM 3.8 MEQ/L (3.5-5.1); SODIUM LEVEL 145 MEQ/L (136-145); THYROID STIMULATING HORMONE 0.731 uIU/ML (0.358-3.740); TOTAL PROTEIN 6.6 GM/DL (6.4-8.2)
== END ==
LOC: M SFHCPLAZ 12:53
DX: M79.604 Pain in right leg (principal); F41.1 Generalized anxiety disorder

== ENCOUNTER 2018-03-04 09:50 | Emergency (ER) | payer OTHER ==
[2018-03-04 10:23] LABS: BASO % 0.8 % (0.0-1.0); EOS % 0.6 % (0.0-3.0); HEMATOCRIT 43.9 % (36.0-47.0); HEMOGLOBIN 14.8 g/dl (12.0-15.5); IMMATURE GRANULOCYTE % 0.4 % (0-3.0); LYMPH # 1.6 10^3/uL (1.5-4.5); LYMPH % 30.6 % (24.0-44.0); MEAN CORPUSCULAR HEMOGLOBIN 30.9 pg (27.0-33.0); MEAN CORPUSCULAR HGB CONC 33.7 g/dl (32.0-36.5); MEAN CORPUSCULAR VOLUME 91.6 fl (80.0-96.0); MONO # 0.3 10^3/uL (0.0-0.8); MONO % 5.4 % (0.0-5.0); NEUTROPHILS # 3.2 10^3/uL (1.8-7.7); NEUTROPHILS % 62.2 % (36.0-66.0); PLATELET COUNT, AUTOMATED 198 10^3/uL (150-450); RED BLOOD COUNT 4.79 10^6/uL (4.00-5.40); RED CELL DISTRIBUTION WIDTH 11.8 % (11.5-14.5); WHITE BLOOD COUNT 5.2 10^3/uL (4.0-10.0)
[2018-03-04] MEDS: GI COCKTAIL 50ML BTL(HYOSCYAMINE/MAALOX/LIDOCAINE VISCOUS)(1:3:1) PO (10:48)
[2018-03-04 10:57] LABS: ALBUMIN 3.7 GM/DL (3.2-5.2); ALBUMIN/GLOBULIN RATIO 1.32 (1.00-1.93); ALKALINE PHOSPHATASE 96 U/L (45-117); ALT/SGPT 33 U/L (12-78); ANION GAP 8 MEQ/L (8-16); AST/SGOT 28 U/L (7-37); BILIRUBIN,DIRECT 0.1 MG/DL (0.0-0.2); BILIRUBIN,TOTAL 0.7 MG/DL (0.2-1.0); BLOOD UREA NITROGEN 13 MG/DL (7-18); CALCIUM LEVEL 8.4 MG/DL (8.8-10.2); CARBON DIOXIDE LEVEL 29 MEQ/L (21-32); CHLORIDE LEVEL 105 MEQ/L (98-107); CK-MB VALUE MASS < 1.0 NG/ML (<3.6); CPK CREATINE PHOSPHOKINASE 74 U/L (26-192); CREATININE FOR GFR 0.93 MG/DL (0.55-1.30); GLOMERULAR FILTRATION RATE > 60.0 (>45); GLUCOSE, FASTING 135 MG/DL (70-100); LIPASE 147 U/L (73-393); MB/CK RELATIVE INDEX 1.35 (< OR =4); SODIUM LEVEL 142 MEQ/L (136-145); TOTAL PROTEIN 6.5 GM/DL (6.4-8.2); TROPONIN I < 0.02 NG/ML (< 0.10)
[2018-03-04] MEDS: PANTOPRAZOLE 40MG INJ (PROTONIX) (C9113) IV (11:35)
[2018-03-04] MEDS: SUCRALFATE SUSP 1GM/10ML UD PO (11:35)
[2018-03-04] MEDS: LORazepam 1 MG TAB PO (11:35)
[2018-03-04 13:33] LABS: D-DIMER QUANT 305.8 ng/ml (<500)
== END 2018-03-04 15:57 | disposition home or self-care (01) ==
LOC: M ED 09:50
DX: R07.9 Chest pain, unspecified (principal); I25.10 Atherosclerotic heart disease of native coronary artery without angina pectoris; Z88.5 Allergy status to narcotic agent; Z88.8 Allergy status to other drugs, medicaments and biological substances
CPT/HCPCS: C9113

== ENCOUNTER → 2018-05-31 | Outpatient (CLI) | payer OTHER ==
[~2018-05-31] MED LIST changes: -CLON0.5T PO; +CLON0.5T8 PO; +HYDR-3363 PO; -PANT40TA2 PO; +PANT40TA3 PO; +PROP10TA56 PO; +RANITAB PO; +SUCR1SS PO; +VALI2TAB PO
[2018-05-31 15:37] LABS: BASO % 0.7 % (0.0-1.0); EOS # 0.1 10^3/uL (0.0-0.50); EOS % 1.1 % (0.0-3.0); HEMATOCRIT 46.5 % (36.0-47.0); HEMOGLOBIN 15.8 g/dl (12.0-15.5); LYMPH # 1.8 10^3/uL (1.5-4.5); LYMPH % 30.9 % (24.0-44.0); MEAN CORPUSCULAR HEMOGLOBIN 31.1 pg (27.0-33.0); MEAN CORPUSCULAR VOLUME 91.5 fl (80.0-96.0); MONO # 0.3 10^3/uL (0.0-0.8); MONO % 5.3 % (0.0-5.0); NEUTROPHILS # 3.5 10^3/uL (1.8-7.7); NEUTROPHILS % 61.6 % (36.0-66.0); PLATELET COUNT, AUTOMATED 203 10^3/uL (150-450); RED BLOOD COUNT 5.08 10^6/uL (4.00-5.40); WHITE BLOOD COUNT 5.7 10^3/uL (4.0-10.0)
[2018-05-31 16:11] LABS: BILIRUBIN,TOTAL 0.5 MG/DL (0.2-1.0); CALCIUM LEVEL 8.9 MG/DL (8.8-10.2); CREATININE FOR GFR 1.05 MG/DL (0.55-1.30); FREE T4 0.91 NG/DL (0.76-1.46); GLOMERULAR FILTRATION RATE 56.3 (>45); POTASSIUM SERUM 4.2 MEQ/L (3.5-5.1); THYROID STIMULATING HORMONE 1.69 uIU/ML (0.358-3.740); TOTAL PROTEIN 6.7 GM/DL (6.4-8.2)
[2018-06-03 00:07] LABS: ANA (HEP2) Negative (.); Lyme Disease IgG/IgM Antibodie <0.91 ISR (0.00-0.90); Lyme Disease IgM Ab Quantitati <0.80 index (0.00-0.79); TISSUE TRANSGLUTAMINASE IgA <2 U/mL (0-3); TISSUE TRANSGLUTAMINASE IgG <2 U/mL (0-5); UNITSIGA FOR GLIADIN IGA 4 units (0-19); UNITSIGG FOR GLIADIN IGG 2 units (0-19)
== END ==
LOC: M LAB 14:55
PROVIDERS: ATTEND Family Medicine
DX: R53.83 Other fatigue (principal); R10.13 Epigastric pain

== ENCOUNTER → 2019-03-08 | Outpatient (CLI) | payer OTHER ==
[2019-03-08 10:41] LABS: BASO % 0.9 % (0.0-1.0); EOS # 0.1 10^3/uL (0.0-0.5); LYMPH # 1.5 10^3/uL (1.5-5.0); LYMPH % 33.5 % (24.0-44.0); MEAN CORPUSCULAR HEMOGLOBIN 31.4 pg (27.0-33.0); MEAN CORPUSCULAR HGB CONC 33.3 g/dl (32.0-36.5); MEAN CORPUSCULAR VOLUME 94.2 fl (80.0-96.0); MONO # 0.4 10^3/uL (0.0-0.8); MONO % 8.2 % (0.0-5.0); NEUTROPHILS # 2.5 10^3/uL (1.5-8.5); PLATELET COUNT, AUTOMATED 219 10^3/uL (150-450); RED BLOOD COUNT 4.46 10^6/uL (4.00-5.40); WHITE BLOOD COUNT 4.5 10^3/uL (4.0-10.0)
[2019-03-08 10:57] LABS: HEMOGLOBIN A1c 5.5 %
[2019-03-08 11:19] LABS: ALBUMIN 3.9 GM/DL (3.2-5.2); BILIRUBIN,TOTAL 0.5 MG/DL (0.2-1.0); CALCIUM LEVEL 9.1 MG/DL (8.8-10.2); CHOLESTEROL RISK RATIO 3.492 (<5); CREATININE FOR GFR 1.07 MG/DL (0.55-1.30); FREE T4 0.99 NG/DL (0.76-1.46); GLOMERULAR FILTRATION RATE 55.1 (>45); POTASSIUM SERUM 3.8 MEQ/L (3.5-5.1); THYROID STIMULATING HORMONE 1.05 uIU/ML (0.358-3.740); TOTAL PROTEIN 6.4 GM/DL (6.4-8.2)
== END ==
LOC: M LAB 09:32
PROVIDERS: ATTEND Physician Assistant
DX: Z13.29 Encounter for screening for other suspected endocrine disorder (principal)

== ENCOUNTER → 2019-05-15 | Outpatient (REF) | payer OTHER ==
[~2019-05-15] MED LIST changes: +AMOX875T PO; +CLON0.5T2 PO; -CLON0.5T8 PO; +DOXY-350 PO
== END ==
LOC: M LAB REF 11:19
PROVIDERS: ATTEND Physician Assistant
DX: R05 Cough (principal)

== ENCOUNTER 2019-05-21 10:51 | Emergency (ER) | payer OTHER ==
[~2019-05-21] VITALS: Ht 157.5 cm; Wt 62.7 kg
[~2019-05-21 10:51] MED LIST changes: -AMOX875T PO; -DOXY-350 PO
[2019-05-21] MEDS ORDERED: AMOX875T PO (11:01)
[2019-05-21] MEDS ORDERED: DOXY-350 PO (11:01)
[2019-05-21 11:31] LABS: BASO % 0.3 % (0.0-1.0); EOS # 0.1 10^3/uL (0.0-0.5); EOS % 1.8 % (0.0-3.0); HEMATOCRIT 41.7 % (36.0-47.0); LYMPH # 1.4 10^3/uL (1.5-5.0); MEAN CORPUSCULAR HEMOGLOBIN 31.8 pg (27.0-33.0); MEAN CORPUSCULAR HGB CONC 33.6 g/dl (32.0-36.5); MEAN CORPUSCULAR VOLUME 94.8 fl (80.0-96.0); MONO # 0.5 10^3/uL (0.0-0.8); MONO % 7.2 % (0.0-5.0); NEUTROPHILS # 4.8 10^3/uL (1.5-8.5); NEUTROPHILS % 70.4 % (36.0-66.0); PLATELET COUNT, AUTOMATED 168 10^3/uL (150-450); WHITE BLOOD COUNT 6.8 10^3/uL (4.0-10.0)
--- NOTE | 2019-05-21 11:31 | REP ---
Clinical: Acute chest pain . Comparison: 03/04/2018 . Findings: The mediastinum and cardiac silhouette are stable and within normal limits for portable technique. The lung briggs are clear without acute consolidation, effusion, or pneumothorax. Skeletal structures are intact. Impression: No acute cardiopulmonary process appreciated. Electronically Signed by Leonides Sosa MD 05/21/2019 11:22 A
[2019-05-21 12:11] LABS: BLOOD UREA NITROGEN 14 MG/DL (7-18); CALCIUM LEVEL 8.9 MG/DL (8.8-10.2); CARBON DIOXIDE LEVEL 28 MEQ/L (21-32); CHLORIDE LEVEL 105 MEQ/L (98-107); CK-MB VALUE MASS 2.5 NG/ML (<3.6); CPK CREATINE PHOSPHOKINASE 92 U/L (26-192); GLOMERULAR FILTRATION RATE > 60.0 (>45); GLUCOSE, FASTING 110 MG/DL (70-100); MB/CK RELATIVE INDEX 2.72 (< OR =4); POTASSIUM SERUM 3.7 MEQ/L (3.5-5.1); SODIUM LEVEL 140 MEQ/L (136-145); TROPONIN I 0.33 NG/ML (< 0.10)
[2019-05-21 12:37] LABS: ALBUMIN 3.6 GM/DL (3.2-5.2); ALT/SGPT 28 U/L (12-78); BILIRUBIN,DIRECT 0.1 MG/DL (0.0-0.2); BILIRUBIN,TOTAL 0.6 MG/DL (0.2-1.0); TOTAL PROTEIN 6.3 GM/DL (6.4-8.2)
[2019-05-21] MEDS ORDERED: ACETAMINOPHEN TAB 650MG DOSE (2X325MG) PO ONE (12:45)
[2019-05-21] MEDS ORDERED: ASPIRIN 325 MG TAB PO ONE (12:45)
[2019-05-21] MEDS ORDERED: GI COCKTAIL 50ML BTL(HYOSCYAMINE/MAALOX/LIDOCAINE VISCOUS)(1:3:1) PO ONE (13:00)
[2019-05-21 13:25] LABS: INFLUENZA A AMPLIFICATION NEGATIVE (NEGATIVE); INFLUENZA B AMPLIFICATION NEGATIVE (NEGATIVE)
[2019-05-21 14:32] LABS: CK-MB VALUE MASS 6.1 NG/ML (<3.6); MB/CK RELATIVE INDEX 6.56 (< OR =4); TROPONIN I 1.4 NG/ML (< 0.10)
[2019-05-21] MEDS ORDERED: NITROGLYCERIN 2% OINT 1 GM *U/D* PKT TOP ONE (14:45)
[2019-05-21] MEDS ORDERED: ONDANSETRON 4MG/2ML VIAL (J2405) IV ONE (14:45)
[2019-05-21] MEDS ORDERED: CLOPIDOGREL 300 MG TAB (PLAVIX) PO STA (14:56)
[2019-05-21] MEDS ORDERED: HEPARIN DRIP 25,000 UNITS in IV 1 EA IV SCH (15:00)
[2019-05-21] MEDS ORDERED: HEPARIN SOD (PORCINE) 5000 UNITS/ML VIAL IV ONE (15:00)
[2019-05-21 15:16] VITALS: BP 194/78
[2019-05-21 15:37] LABS: INR 1.03; PROTHROMBIN TIME 13.2 SECONDS (11.8-14.0)
[2019-05-21 15:38] LABS: PARTIAL THROMBOPLASTIN TIME 33.1 SECONDS (25.0-38.4)
[2019-05-21 15:52] VITALS: BP 201/91
--- NOTE | 2019-05-22 15:29 | ECGEPIP ---
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
--- NOTE | 2019-05-22 15:31 | ECGEPIP ---
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
== END 2019-05-21 15:58 | disposition short-term general hospital (02) ==
LOC: M ED 10:51
DX: I21.4 Non-ST elevation (NSTEMI) myocardial infarction (principal); R00.1 Bradycardia, unspecified; I51.9 Heart disease, unspecified; I10 Essential (primary) hypertension; E78.5 Hyperlipidemia, unspecified; Z79.899 Other long term (current) drug therapy; Z88.5 Allergy status to narcotic agent; Z88.8 Allergy status to other drugs, medicaments and biological substances
CPT/HCPCS: 71045; 80048; 80076; 82550; 82553; 84484; 85025; 85610; 85730; 87631; 93005; 93041; 94760; 96374; 99285; J2405

== ENCOUNTER 2019-06-22 11:26 | Outpatient (RCR) | payer OTHER ==
--- NOTE | 2019-06-15 10:21 | CARECAPL ---
Assessment Account #s: Initial Assessment General Diagnoses: Stent, NSTEMI Date of event: May 22, 2019 Physician: Usman Greene Allergies: Coded Allergies: codeine (Verified Allergy, Unknown, 05/21/19) duloxetine (Verified Allergy, Unknown, 05/21/19) Date Entered Program: Jun 15, 2019 Risk strat for cardiac event: Moderate Exercise Date: Jun 15, 2019 Assessment: Initial Assessment Stages of change: Contemplate Exercise Prescription Plan to educate about the risks of cardiac disease and to provide a monitored exercise program to build strength and endurance. Modalities initiated: Treadmill (will add), Cardio-Strider (may add), Nustep (will add), Arm Aerometer (will consider (has rotator)), Dumbells (will add), Recumbent Bike (will add) Frequency: 2-3 Duration (Minutes) 30 - 60 minutes total exercise a day. 15 - 20 work intervals in minutes. PRN rest intervals in minutes. Functional Capacity Goal Sustained Metabolic Equivalent of a task (MET) goal of 2.5-3.5 for 15-20 minutes. Intensity: 3-Moderate Progression (METS) Increase by: .5 METS every: 2-3 sessions Angina with ex: No Target Heart Rate rest + 35-40 betablocker therapy Resistance Training: Yes Reps: 6-8 Medications Scheduled Aspirin (Aspir 81), 81 MG PO DAILY, (Reported) Atorvastatin Calcium (Lipitor), 80 MG PO DAILY, (Reported) Clonazepam (Clonazepam), 0.25 MG PO QHS, (Reported) Clonazepam (Clonazepam), 0.5 MG PO QAM, (Reported) Clopidogrel Bisulfate (Plavix), 75 MG PO DAILY, (Reported) Escitalopram Oxalate (Lexapro), 20 MG PO QHS, (Reported) Metoprolol Tartrate (Metoprolol Tartrate), 25 MG PO BID, (Reported) Multivitamin,Therapeutic (Thera-Tabs), 1 TAB PO DAILY, (Reported) Pantoprazole Sodium (Protonix), 20 MG PO DAILY, (Reported) Discontinued Medications Amoxicillin (Amoxicillin), 1 TAB PO BID, (Reported) Discontinued Reason: Pt states not taking Clonazepam (Clonazepam), 0.5 MG PO TID, (Reported) Discontinued Reason: Pt states not taking Escitalopram Oxalate (Escitalopram Oxalate), 25 MG PO DAILY Discontinued Reason: Pt states not taking Hydroxyzine HCl (Hydroxyzine HCl), 25 MG PO Q8HP, (Reported) Discontinued Reason: Pt states not taking Pantoprazole Sodium (Protonix), 40 MG PO DAILY, (Reported) Discontinued Reason: Pt states not taking Sucralfate (Carafate), 10 ML PO ACHS Discontinued Reason: Pt states not taking Target Goals Individual exercise Rx (1) BP 140/90 or 130/80 if DM or CKD (1) Aerobic active 30+min 5 days per week (1) Nutrition Date: Jun 15, 2019 Assessment: Initial Assessment Stages of change: Contemplate Lipids Total Cholesterol (160), High Density Lipids (HDL) (47), Low Density Lipids (LDL) (96), Triglycerides (87), Lipid med/supplement Lipid- med/supplement lipitor Diabetes Diabetes: No Weight Management Weight (lbs): 138.4 Height (inches): 62.5 Waist Circumference (Inches): 37 BMI: 25.2 Weight goal: 135 Special Diet: regular Vitamin/Supplements: Multivitamin Alcohol: special Alcohol Type: wine Alcohol Amount: other (1/2 glass on special occasions) Diet Access Tool: Rate your plate Score: 34 Target goal LDL-C<100 if triglycerides are >200 Non-HDL-C should be <130 (1) LDL-C<70 for high risk patients (4) HbA1c<7% (1) BMI<25 Waist cir<40in M/<35in F (1) Education Date: Jun 15, 2019 Assessment: Initial Assessment Learning Barriers: ready, learn Knowledge Test Score: 9 Stages of change: Contemplate Family Support: Yes (high stress at home. Custody of 3 grandchildren. Will provide support throughout program and teach how to take care of self) Tobacco use: No Intervention Referral to smoking cessation: No Target Goals Complete cessation of tobacco use (1). Psychosocial Date: Jun 15, 2019 Assessment: Initial Assessment Psych Test (Initial/Discharge) Tool Used: Other Score: 5 Stages of change: Contemplate, Preperation Psychotropic medication lexapro, clonazepam prn Target Goal Assess presence or absence of depression using a valid screening tool (1). Maximize coping skills (2). Positive support system (2). Fall Risk Assess: No Provider Assessment Provider Assessment: Proceed with rehRosa Jha RN Jun 15, 2019 10:21
[~2019-06-22 11:26] MED LIST changes: +AMOX875T PO; +CLON0.25 PO; +CLON0.5T17 PO; +DOXY-350 PO; +LIPI80TA PO; +METO1TAB87 PO; +PLAV1TAB2 PO; +PROT20TA11 PO; +THERTAB52 PO
== END 2019-06-24 ==
LOC: M CR 11:26
PROVIDERS: ATTEND Internal Medicine Cardiovascular Disease
DX: Z95.5 Presence of coronary angioplasty implant and graft (principal); I25.2 Old myocardial infarction

== ENCOUNTER 2019-07-15 07:09 | Emergency (ER) | payer OTHER ==
[~2019-07-15] VITALS: Ht 157.5 cm; Wt 63.1 kg
[2019-07-15] MEDS ORDERED: ONDANSETRON 4MG/2ML VIAL (J2405) IV ONE (07:45)
--- NOTE | 2019-07-15 07:52 | REP ---
Clinical: Chest pain . Comparison: 03/04/2018 Findings: The mediastinum and cardiac silhouette are stable and within normal limits for portable technique. The lung briggs are clear without acute consolidation, effusion, or pneumothorax. Skeletal structures are intact. Impression: No acute cardiopulmonary process appreciated. Electronically Signed by Leonides Sosa MD 07/15/2019 07:44 A
[2019-07-15 08:06] LABS: BASO % 0.5 % (0.0-1.0); EOS # 0.1 10^3/uL (0.0-0.5); EOS % 1.8 % (0.0-3.0); HEMATOCRIT 42.2 % (36.0-47.0); HEMOGLOBIN 14.5 g/dl (12.0-15.5); LYMPH # 1.7 10^3/uL (1.5-5.0); LYMPH % 29.3 % (24.0-44.0); MEAN CORPUSCULAR HEMOGLOBIN 31.9 pg (27.0-33.0); MEAN CORPUSCULAR HGB CONC 34.4 g/dl (32.0-36.5); MEAN CORPUSCULAR VOLUME 92.7 fl (80.0-96.0); MONO # 0.3 10^3/uL (0.0-0.8); MONO % 5.9 % (0.0-5.0); NEUTROPHILS # 3.5 10^3/uL (1.5-8.5); NEUTROPHILS % 62.5 % (36.0-66.0); PLATELET COUNT, AUTOMATED 180 10^3/uL (150-450); RED BLOOD COUNT 4.55 10^6/uL (4.00-5.40); WHITE BLOOD COUNT 5.6 10^3/uL (4.0-10.0)
[2019-07-15 08:21] LABS: PROTHROMBIN TIME 12.9 SECONDS (11.8-14.0)
[2019-07-15 08:27] LABS: ALBUMIN 3.7 GM/DL (3.2-5.2); ALT/SGPT 49 U/L (12-78); BILIRUBIN,DIRECT 0.3 MG/DL (0.0-0.2); BLOOD UREA NITROGEN 15 MG/DL (7-18); CALCIUM LEVEL 8.8 MG/DL (8.8-10.2); CARBON DIOXIDE LEVEL 28 MEQ/L (21-32); CHLORIDE LEVEL 107 MEQ/L (98-107); CK-MB VALUE MASS 1.1 NG/ML (<3.6); CPK CREATINE PHOSPHOKINASE 69 U/L (26-192); CREATININE FOR GFR 0.89 MG/DL (0.55-1.30); GLOMERULAR FILTRATION RATE > 60.0 (>45); GLUCOSE, FASTING 102 MG/DL (70-100); LIPASE 138 U/L (73-393); MB/CK RELATIVE INDEX 1.59 (< OR =4); NT-PRO BNP 97 PG/ML (<125); POTASSIUM SERUM 3.7 MEQ/L (3.5-5.1); SODIUM LEVEL 141 MEQ/L (136-145); TOTAL PROTEIN 6.2 GM/DL (6.4-8.2); TROPONIN I < 0.02 NG/ML (< 0.10)
[2019-07-15] MEDS ORDERED: ACETAMINOPHEN 325 MG TAB As Ordered ONE (09:27)
[2019-07-15] MEDS ORDERED: ACETAMINOPHEN TAB 650MG DOSE (2X325MG) PO ONE (09:30)
[2019-07-15] MEDS ORDERED: clonazePAM 0.5 MG TAB PO ONE (10:15)
[2019-07-15 14:02] LABS: CK-MB VALUE MASS < 1.0 NG/ML (<3.6); CPK CREATINE PHOSPHOKINASE 58 U/L (26-192); MB/CK RELATIVE INDEX 1.72 (< OR =4); TROPONIN I < 0.02 NG/ML (< 0.10)
[2019-07-15] MEDS ORDERED: AMOX500C PO (14:18)
[2019-07-15 14:40] VITALS: BP 118/58
[2019-07-15] MEDS ORDERED: ZITHTAB PO (14:51)
--- NOTE | 2019-07-17 20:30 | ECGEPIP ---
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
--- NOTE | 2019-07-17 20:34 | ECGEPIP ---
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
== END 2019-07-15 15:00 | disposition home or self-care (01) ==
LOC: M ED 07:09
DX: J02.0 Streptococcal pharyngitis (principal); R07.9 Chest pain, unspecified; R00.1 Bradycardia, unspecified; I25.10 Atherosclerotic heart disease of native coronary artery without angina pectoris; I10 Essential (primary) hypertension; E78.5 Hyperlipidemia, unspecified; I25.2 Old myocardial infarction; G43.909 Migraine, unspecified, not intractable, without status migrainosus; F41.9 Anxiety disorder, unspecified; Z95.5 Presence of coronary angioplasty implant and graft; Z79.82 Long term (current) use of aspirin; Z79.899 Other long term (current) drug therapy; Z88.5 Allergy status to narcotic agent; Z88.8 Allergy status to other drugs, medicaments and biological substances
CPT/HCPCS: 71045; 80048; 80076; 82550; 82553; 83690; 83880; 84443; 84484; 85025; 85610; 87880; 93005; 93041; 94760; 96374; 99285; J2405

== ENCOUNTER 2019-07-20 09:36 | Outpatient (RCR) | payer OTHER ==
[2019-07-06 09:49] VITALS: BP 140/80
[2019-07-06 10:22] VITALS: BP 130/80
[2019-07-06 11:03] VITALS: BP 118/80
[2019-07-08 09:42] VITALS: BP 140/90
[2019-07-08 10:19] VITALS: BP 150/60
[2019-07-08 11:11] VITALS: BP 114/60
--- NOTE | 2019-07-11 13:20 | CARECAPL ---
Assessment Account #s: Re-Assessment I General Diagnoses: Stent, NSTEMI Date of event: May 22, 2019 Physician: Usman Greene Allergies: Coded Allergies: codeine (Verified Allergy, Unknown, 05/21/19) duloxetine (Verified Allergy, Unknown, 05/21/19) Date Entered Program: Jun 15, 2019 Risk strat for cardiac event: Moderate Exercise Date: Jul 11, 2019 Assessment: Re-Assessment I Stages of change: Contemplate Exercise Prescription Plan TO EDUCATE AND BUILD ENDURANCE THROUGH MONITORED EXERCISE PROGRAM Modalities initiated: Treadmill (METS=3.26/RPE=3), Nustep (METS=4.8/RPE=3), Arm Aerometer (METS=2.5/RPE=3), Recumbent Bike (METS=3.7/RPE=4) Frequency: 3 Duration (Minutes) 30 - 60 minutes total exercise a day. 15 - 20 work intervals in minutes. PRN rest intervals in minutes. Functional Capacity Goal Sustained Metabolic Equivalent of a task (MET) goal of 3.75-4.25 for 15-20 minutes. Intensity: 3-Moderate Progression (METS) Increase by: 0.5 METS every: 5 sessions TOLERATED Angina with ex: No Target Heart Rate REST + 35-40 BASED ON BETA ZAINAB THERAPY Resistance Training: No Hypertension: Yes Hypertension controlled with: Medication (METOPROLOL) Resting 140/90 Peak Exercise BP 150/60 Medications Scheduled Aspirin (Aspir 81), 81 MG PO DAILY, (Reported) Atorvastatin Calcium (Lipitor), 80 MG PO DAILY, (Reported) Clonazepam (Clonazepam), 0.25 MG PO QHS, (Reported) Clonazepam (Clonazepam), 0.5 MG PO QAM, (Reported) Clopidogrel Bisulfate (Plavix), 75 MG PO DAILY, (Reported) Escitalopram Oxalate (Lexapro), 20 MG PO QHS, (Reported) Metoprolol Tartrate (Metoprolol Tartrate), 25 MG PO BID, (Reported) Multivitamin,Therapeutic (Thera-Tabs), 1 TAB PO DAILY, (Reported) Pantoprazole Sodium (Protonix), 20 MG PO DAILY, (Reported) Current BP 114/78 Med Change: No Intervention Home exercise: Type (WALKING,HAND WEIGHTS, HOME EXERCISE EQUIPMENT, JOIN LOCAL GYM OR MEET PROGRAM THROUGH CARDIAC REHAB), Frequency (3-5 DAYS PER WEEK), Duration (30-60 MINUTES) Education: Self pulse (PATIENT IS INDEPENDENT WITH TAKING HER OWN PULSE), Ex safety (PATIENT VERBALIZES STAYING HYDRATED AND COMFORTABLE CLOTHING ARE KEYS TO SAFE EXERCISE PROGRAM), S/S to report (REVIEWED S/S TO REPORT WHILE EXERCISING SUCH SOB, CHEST PAIN, CHEST PRESSURE, NAUSEA, VOMITING, EXCESSIVE SWEATING), Low NA diet (PATIENT VERBALIZES THAT SHE IS TO AVOID SALT IN HER DIET DUE TO HER CARDIAC DISEASE), BP medication (REVIEWED USE/ACTION OF METOPROLOL WITH PATIENT, PATIENT VERBALIZES UNDERSTANDING), RPE Scale (DEMONSTRATES INDEPENDENTLY USE OF RPE SCALE FOR RATING EQUIPMENT DIFFICULTY), Equipment orientation (ORIENTED TO EACH PIECE OF EQUIPMENT USED), warm up/cool down (PATIENT DEMONSTRATES WARM UP AND COOL DOWN PRIOR TO AND FOLLOWING EXERCISE), Understand BP (PATIENT STATES THAT B/P SHOULD BE BELOW 130/80), Physical Active (PATIENT VERBALIZES UNDERSTANDING OF IMPORTANCE OF CONTINUED EXERCISE FOLLOWING CARDIAC REHAB PROGRAM) Education Goals Met: No (PROGRESSING TOWARD GOALS) Target Goals Individual exercise Rx (1) BP 140/90 or 130/80 if DM or CKD (1) Aerobic active 30+min 5 days per week (1) Nutrition Date: Jul 11, 2019 Assessment: Re-Assessment I Stages of change: Contemplate Lipid- med/supplement ATORVASTATIN Med Change: No Diabetes Diabetes: No Monitor Blood Sugar at home: No Medication Change: No Blood sugar in range: No Weight Management Weight (lbs): 138.4 Special Diet: regular Vitamin/Supplements: Multivitamin Current Weight (pounds): 138.4 Intervention Salon Leader Consult: No Nurse/patient discussion: Yes Dietary Goals TO MAKE HEART HEALTHY CHOICES WITH DIET Diet Class: Yes (MET WITH BOLT SORTER 07/04/19) Referral to Diabetes education: No Referral to lipid clinic: No Referral to weight mangement p: No Education Eating Healthy Education Goals Met: No (PROGRESSING TOWARD GOALS) Target goal LDL-C<100 if triglycerides are >200 Non-HDL-C should be <130 (1) LDL-C<70 for high risk patients (4) HbA1c<7% (1) BMI<25 Waist cir<40in M/<35in F (1) Education Date: Jul 11, 2019 Assessment: Re-Assessment I Learning Barriers: ready Stages of change: Contemplate Family Support: Yes Tobacco use: No Tobacco Use Smokeless tobacco: No Intervention Referral to smoking cessation: No Individual education and couns: No Tobacco Adjunct: No Education class schedule given: No Attended education classes: No Education: CAD (PATIENT STATES HIGH CHOLESTEROL CLOGS ARTERIES CAUSING CAD), Risk factors (PATIENT STATES THAT BEING OVER WEIGHT, DIABETIC, AND ELEVATED CHOLESTEROL ARE RISKS FACTORS FOR CAD), med compliance (PATIENT STATES UNDERSTANDING OF IMPORTANCE OF TAKING MEDICATIONS ORDERED BY MD), cardiac A&P (REVIEWED KRAMES HANDOUTS ON ANATOMY OF HEART, PATIENT WILL NEED REINFORCEMENT THROUGHOUT PROGRAM), Angina S/S (PATIENT VERBALLIZES UNDERSTANDING OF S/S OF ANGINA SUCH CHEST PAIN/PRESSURE, SOB, N/V), Sexuality (PATIENT AWARE TO HAVE PERMISSION FROM MD PRIOR TO RESUMING SEXUAL ACTIVITY) Education Goals Met: No (PROGRESSING TOWARD GOALS) Target Goals Complete cessation of tobacco use (1). Psychosocial Date: Jul 11, 2019 Assessment: Re-Assessment I Stages of change: Contemplate Intervention Physician Consult: No Physician Referral: No Psychotropic medication LEXAPRO, CLONAZEPAM Med Change: No Stress Management Class: No Uses Stress Management Skills: Yes Education Education: Coping Techniques (DISCUSSED COPING MEASURES SUCH TAKING TIME FOR HERSELF,TALKING WITH FRIENDS AND FAMILY,EXERCISE), S/S depression (DISCUSSED S/S OF DEPRESSION SUCH WITHDRAWAL, SECLUSION, LACK OF INTEREST OR APPETITE), Relaxation Techniques (DISCUSSED WAYS TO RELAX SUCH READING,LISTENING TO MUSIC, EXERCISING) Education Goals Met: No (PROGRESSING TOWARD GOALS) Target Goal Assess presence or absence of depression using a valid screening tool (1). Maximize coping skills (2). Positive support system (2). Patient/Program Goal Preventative Medication: Yes Aspirin, Yes Clopidogrel, Yes Beta blockade, Yes Statin/OTR lipid Lowering Fall Risk Assess: Yes (NOT A FALL RISK) Provider Assessment Session Number: 6 Provider Assessment: Proceed with rehab Rio Bradley RN Jul 11, 2019 13:20
[2019-07-13 09:17] VITALS: BP 118/70
[2019-07-13 09:50] VITALS: BP 160/86
[2019-07-13 10:31] VITALS: BP 116/80
[~2019-07-20] VITALS: Ht 157.5 cm; Wt 63.1 kg
[~2019-07-20 09:36] MED LIST changes: +AMOX500C PO; +ZITHTAB PO
[2019-07-20 10:00] VITALS: BP_SYST 108; BP_SYST 128; BP_SYST 160; BP_DIAS 62; BP_DIAS 70; BP_DIAS 90
== END 2019-07-23 ==
LOC: M CR 09:36
PROVIDERS: ATTEND Internal Medicine Cardiovascular Disease
DX: Z95.5 Presence of coronary angioplasty implant and graft (principal); I25.2 Old myocardial infarction

== ENCOUNTER 2019-07-25 11:19 | Outpatient (RCR) | payer OTHER ==
[~2019-07-25] VITALS: Ht 158.8 cm; Wt 62.7 kg
[2019-07-25 10:00] VITALS: BP_SYST 108; BP_SYST 124; BP_SYST 160; BP_DIAS 72; BP_DIAS 78; BP_DIAS 86
[2019-07-27 10:08] VITALS: BP 128/76
[2019-07-27 10:25] VITALS: BP 184/80
[2019-07-27 11:22] VITALS: BP 122/70
--- NOTE | 2019-08-01 14:24 | CARECAPL ---
Assessment Account #s: Re-Assessment I General Diagnoses: Stent, NSTEMI Date of event: May 22, 2019 Physician: Usman Greene Allergies: Coded Allergies: codeine (Verified Allergy, Unknown, 05/21/19) duloxetine (Verified Allergy, Unknown, 05/21/19) Date Entered Program: Jun 15, 2019 Risk strat for cardiac event: Moderate Exercise Date: Aug 01, 2019 Stages of change: Contemplate Exercise Prescription Modalities initiated: Treadmill (2.5/2.0 15 minutes mts 3.60 rpe 3), Nustep (15 minutes mts 5.1 rpe 3), Arm Aerometer (3.2 8 MNUTES MTS 2.4 RPE 4), Recumbent Bike (R3 8 MINUTES MTS 3.7 RPE 4) Duration (Minutes) 30 - 60 minutes total exercise a day. 15 - 20 work intervals in minutes. PRN rest intervals in minutes. Functional Capacity Goal Sustained Metabolic Equivalent of a task (MET) goal of 3.75-4.25 for 15 minutes. Intensity: 3-Moderate Progression (METS) Increase by: METS every: sessions Angina with ex: No Resistance Training: No (TORN ROTATOR CUFF) Hypertension: Yes Resting 128/76 Peak Exercise BP 184/80 Medications Scheduled Aspirin (Aspir 81), 81 MG PO DAILY, (Reported) Atorvastatin Calcium (Lipitor), 80 MG PO DAILY, (Reported) Azithromycin (Zithromax), 250 MG PO ASDIRECTED Clonazepam (Clonazepam), 0.25 MG PO QHS, (Reported) Clonazepam (Clonazepam), 0.5 MG PO QAM, (Reported) Clopidogrel Bisulfate (Plavix), 75 MG PO DAILY, (Reported) Escitalopram Oxalate (Lexapro), 20 MG PO QHS, (Reported) Metoprolol Tartrate (Metoprolol Tartrate), 25 MG PO BID, (Reported) Multivitamin,Therapeutic (Thera-Tabs), 1 TAB PO DAILY, (Reported) Pantoprazole Sodium (Protonix), 20 MG PO DAILY, (Reported) Current BP 122/70 Med Change: No Intervention Home exercise: Type (WALKING, HANDWEIGHTS, JOIN LOCAL GYM), Frequency (5-7 TIMES PER WEEK), Duration (30-60 MINUTES) Resistance Training: No Education Goals Met: Yes (ALL EDUCATION COMPLETED) Target Goals Individual exercise Rx (1) BP 140/90 or 130/80 if DM or CKD (1) Aerobic active 30+min 5 days per week (1) Nutrition Date: Aug 01, 2019 Assessment: Re-Assessment II Stages of change: Contemplate Current Weight (pounds): 138 Education Goals Met: No (PROGRESSING TOWARD GOALS) Target goal LDL-C<100 if triglycerides are >200 Non-HDL-C should be <130 (1) LDL-C<70 for high risk patients (4) HbA1c<7% (1) BMI<25 Waist cir<40in M/<35in F (1) Education Date: Aug 01, 2019 Assessment: Re-Assessment II Intervention Education class schedule given: Yes Attended education classes: Yes Education Goals Met: No (PROGRESSING TOWARD GOALS) Target Goals Complete cessation of tobacco use (1). Psychosocial Date: Aug 01, 2019 Assessment: Re-Assessment II Education Education: Coping Techniques (REVIEWED WITH PT. LOTS OF STRESS AT HOME. CARING FOR GRANDCHILDREN (3)), S/S depression (HAS SAD MOMENTS AT REHAB. SUPPORT GIVEN), Relaxation Techniques (ENCOURAGED TO TAKE TIME FOR SELF.) Education Goals Met: No (WILL CONTINUE TO SUPPORT THROUGHOUT PROGRAM . ) Target Goal Assess presence or absence of depression using a valid screening tool (1). Maximize coping skills (2). Positive support system (2). Provider Assessment Session Number: 10 Provider Assessment: No changes (GOOD ATTITUDE TOWARD EXERCISE. WORKS HARD.) Rosa Celis RN Aug 01, 2019 14:24
[2019-08-03 10:29] VITALS: BP 112/80
[2019-08-03 11:00] VITALS: BP 130/80
[2019-08-03 11:26] VITALS: BP 104/70
[2019-08-05 10:09] VITALS: BP 118/76
[2019-08-05 10:45] VITALS: BP 140/80
[2019-08-05 11:24] VITALS: BP 102/60
--- NOTE | 2019-08-12 13:38 | CARECAPL ---
General Allergies: Coded Allergies: codeine (Verified Allergy, Unknown, 05/21/19) duloxetine (Verified Allergy, Unknown, 05/21/19) Exercise Prescription Duration (Minutes) 30 - 60 minutes total exercise a day. 15 - 20 work intervals in minutes. PRN rest intervals in minutes. Functional Capacity Goal Sustained Metabolic Equivalent of a task (MET) goal of for minutes. Progression (METS) Increase by: METS every: sessions Medications Scheduled Aspirin (Aspir 81), 81 MG PO DAILY, (Reported) Atorvastatin Calcium (Lipitor), 80 MG PO DAILY, (Reported) Azithromycin (Zithromax), 250 MG PO ASDIRECTED Clonazepam (Clonazepam), 0.25 MG PO QHS, (Reported) Clonazepam (Clonazepam), 0.5 MG PO QAM, (Reported) Clopidogrel Bisulfate (Plavix), 75 MG PO DAILY, (Reported) Escitalopram Oxalate (Lexapro), 20 MG PO QHS, (Reported) Metoprolol Tartrate (Metoprolol Tartrate), 25 MG PO BID, (Reported) Multivitamin,Therapeutic (Thera-Tabs), 1 TAB PO DAILY, (Reported) Pantoprazole Sodium (Protonix), 20 MG PO DAILY, (Reported) Target Goals Individual exercise Rx (1) BP 140/90 or 130/80 if DM or CKD (1) Aerobic active 30+min 5 days per week (1) Target goal LDL-C<100 if triglycerides are >200 Non-HDL-C should be <130 (1) LDL-C<70 for high risk patients (4) HbA1c<7% (1) BMI<25 Waist cir<40in M/<35in F (1) Target Goals Complete cessation of tobacco use (1). Target Goal Assess presence or absence of depression using a valid screening tool (1). Maximize coping skills (2). Positive support system (2). Provider Assessment Provider Assessment: No changes (Cardiac Rehab Program closed due to COVID-19, patient's account to be put on hold) Rio Bradley RN Aug 12, 2019 13:38
== END 2019-08-23 ==
LOC: M CR 11:19
PROVIDERS: ATTEND Internal Medicine Cardiovascular Disease
DX: Z98.61 Coronary angioplasty status (principal); I25.2 Old myocardial infarction

== ENCOUNTER → 2019-11-08 | Outpatient (CLI) | payer OTHER ==
[2019-11-08 11:57] LABS: BASO % 0.6 % (0.0-1.0); EOS # 0.1 10^3/uL (0.0-0.5); EOS % 1.5 % (0.0-3.0); HEMATOCRIT 41.2 % (36.0-47.0); HEMOGLOBIN 13.5 g/dl (12.0-15.5); LYMPH # 1.6 10^3/uL (1.5-5.0); LYMPH % 30.4 % (24.0-44.0); MEAN CORPUSCULAR HGB CONC 32.8 g/dl (32.0-36.5); MEAN CORPUSCULAR VOLUME 94.5 fl (80.0-96.0); MONO # 0.4 10^3/uL (0.0-0.8); MONO % 7.1 % (0.0-5.0); NEUTROPHILS # 3.2 10^3/uL (1.5-8.5); PLATELET COUNT, AUTOMATED 175 10^3/uL (150-450); RED BLOOD COUNT 4.36 10^6/uL (4.00-5.40); WHITE BLOOD COUNT 5.4 10^3/uL (4.0-10.0)
[2019-11-08 12:33] LABS: ALBUMIN 3.7 GM/DL (3.2-5.2); ALT/SGPT 39 U/L (12-78); BILIRUBIN,TOTAL 1.1 MG/DL (0.2-1.0); BLOOD UREA NITROGEN 19 MG/DL (7-18); CALCIUM LEVEL 8.9 MG/DL (8.8-10.2); CARBON DIOXIDE LEVEL 28 MEQ/L (21-32); CHLORIDE LEVEL 107 MEQ/L (98-107); CHOLESTEROL LEVEL 119 MG/DL (<200); CHOLESTEROL RISK RATIO 2.203 (<5); CREATININE FOR GFR 0.81 MG/DL (0.55-1.30); GLOMERULAR FILTRATION RATE > 60.0 (>45); GLUCOSE, FASTING 102 MG/DL (70-100); HDL CHOLESTEROL 54 MG/DL (>40); LDL CHOLESTEROL 55 MG/DL (<100); NON-HDL-C 65 MG/DL; POTASSIUM SERUM 4.2 MEQ/L (3.5-5.1); SODIUM LEVEL 143 MEQ/L (136-145); TOTAL 25(OH) VITAMIN D 54.8 NG/ML (30.0-100.0); TRIGLYCERIDES LEVEL 48 MG/DL (<150)
== END ==
LOC: M PLALAB 09:42
PROVIDERS: ATTEND Physician Assistant
DX: E78.00 Pure hypercholesterolemia, unspecified (principal)

== ENCOUNTER → 2019-11-29 | Outpatient (CLI) | payer OTHER ==
[~2019-11-29] MED LIST changes: -ASPI81TA85 PO; +ASPI81TA86 PO; +PANT40TA29 PO; -PANT40TA3 PO
--- NOTE | 2019-11-30 07:27 | REP ---
ANKLE: REASON: Ankle pain. COMPARISON: No priors. FINDINGS: No acute fracture or destructive osseous lesion. The mortise is intact. Electronically Signed by Stevenson Hare DO 11/30/2019 09:32 A
--- NOTE | 2019-11-30 07:27 | REP ---
SHOULDER: REASON: Shoulder pain. COMPARISON: No priors. FINDINGS: Three views of the right shoulder were performed. The acromioclavicular and glenohumeral relationships are within normal limits. There is no acute fracture or destructive osseous lesions. Electronically Signed by Stevenson Hare DO 11/30/2019 09:32 A
--- NOTE | 2019-11-30 07:27 | REP ---
FOOT: REASON: Contusion. FINDINGS: The joint spaces are symmetric and relatively well maintained. There is no evidence of acute fracture or destructive osseous lesion. IMPRESSION: Negative. A tiny flake-like radiodensity is seen near the apophysis of the base of the 5th metatarsal. This is likely chronic; however, if there is point tenderness about this region, then it potentially represents an acute avulsion fracture. Electronically Signed by Stevenson Hare DO 11/30/2019 09:31 A
== END ==
LOC: M WUC 13:53
PROVIDERS: ATTEND Physician Assistant
DX: S40.011A Contusion of right shoulder, initial encounter (principal); S90.31XA Contusion of right foot, initial encounter; S90.01XA Contusion of right ankle, initial encounter; X58.XXXA Exposure to other specified factors, initial encounter; Y92.89 Other specified places as the place of occurrence of the external cause

== ENCOUNTER → 2020-01-18 | Outpatient (CLI) | payer OTHER, SELFPAY | LOC: M LABSMTC 14:04 | PROVIDERS: ATTEND Pediatrics | DX: Z03.818 Encounter for observation for suspected exposure to other biological agents ruled out (principal); Z11.59 Encounter for screening for other viral diseases ==

== ENCOUNTER → 2020-03-29 | Outpatient (CLI) | payer MEDICARE, OTHER ==
[2020-03-29 13:12] LABS: BASO % 0.7 % (0.0-1.0); EOS # 0.1 10^3/uL (0.0-0.5); EOS % 1.1 % (0.0-3.0); HEMATOCRIT 44.1 % (36.0-47.0); HEMOGLOBIN 14.6 g/dl (12.0-15.5); LYMPH # 1.9 10^3/uL (1.5-5.0); LYMPH % 34.6 % (24.0-44.0); MEAN CORPUSCULAR HEMOGLOBIN 31.1 pg (27.0-33.0); MEAN CORPUSCULAR HGB CONC 33.1 g/dl (32.0-36.5); MONO # 0.4 10^3/uL (0.0-0.8); MONO % 6.9 % (0.0-5.0); NEUTROPHILS # 3.1 10^3/uL (1.5-8.5); NEUTROPHILS % 56.5 % (36.0-66.0); PLATELET COUNT, AUTOMATED 200 10^3/uL (150-450); RED BLOOD COUNT 4.69 10^6/uL (4.00-5.40); WHITE BLOOD COUNT 5.4 10^3/uL (4.0-10.0)
[2020-03-29 13:39] LABS: BLOOD UREA NITROGEN 10 MG/DL (7-18); CALCIUM LEVEL 9.2 MG/DL (8.8-10.2); CARBON DIOXIDE LEVEL 31 MEQ/L (21-32); CHLORIDE LEVEL 107 MEQ/L (98-107); CREATININE FOR GFR 0.94 MG/DL (0.55-1.30); GLOMERULAR FILTRATION RATE > 60.0 (>45); GLUCOSE, FASTING 86 MG/DL (70-100); SODIUM LEVEL 141 MEQ/L (136-145)
== END ==
LOC: M LAB 11:36
PROVIDERS: ATTEND Internal Medicine Cardiovascular Disease
DX: R94.39 Abnormal result of other cardiovascular function study (principal)

== ENCOUNTER → 2020-05-29 | Outpatient (CLI) | payer MEDICARE, OTHER ==
[2020-05-29 11:08] LABS: CHOLESTEROL RISK RATIO 2.263 (<5)
== END ==
LOC: M PLALAB 08:37
PROVIDERS: ATTEND Internal Medicine Cardiovascular Disease
DX: E78.00 Pure hypercholesterolemia, unspecified (principal); I21.4 Non-ST elevation (NSTEMI) myocardial infarction; I25.10 Atherosclerotic heart disease of native coronary artery without angina pectoris

== ENCOUNTER → 2020-06-18 | Outpatient (CLI) | payer MEDICARE, OTHER ==
[~2020-06-18] MED LIST changes: +ESCI10TA16 PO; -ESCI10TA2 PO; -ESCI20TA PO; +ESCI20TA16 PO
[2020-06-18 16:00] LABS: APPEARANCE, URINE CLEAR (CLEAR); BACTERIA, URINE AUTO NEGATIVE (NEGATIVE); BILIRUBIN, URINE AUTO NEGATIVE (NEGATIVE); BLOOD, URINE BLOOD NEGATIVE (NEGATIVE); COLOR, URINE STRAW (YELLOW); GLUCOSE, URINE (UA) AUTO NEGATIVE (NEGATIVE); KETONE, URINE AUTO NEGATIVE (NEGATIVE); LEUKOCYTE ESTERASE, URINE AUTO NEGATIVE (NEGATIVE); NITRITE, URINE AUTO NEGATIVE (NEGATIVE); PROTEIN, URINE AUTO NEGATIVE (NEGATIVE); RBC, URINE AUTO 0 /HPF (0-3); SPECIFIC GRAVITY URINE AUTO 1.002 (1.002-1.035); SQUAMOUS EPITHELIAL CELL UR AU 0 /HPF (0-6); UROBILINOGEN, URINE AUTO 0.2 mg/dL (0.0-2.0); WBC, URINE AUTO 1 /HPF (0-3)
[2020-06-18 16:09] LABS: BASO % 0.6 % (0.0-1.0); EOS # 0.1 10^3/uL (0.0-0.5); EOS % 1.8 % (0.0-3.0); HEMATOCRIT 42.7 % (36.0-47.0); HEMOGLOBIN 14.2 g/dl (12.0-15.5); LYMPH # 1.6 10^3/uL (1.5-5.0); LYMPH % 30.8 % (24.0-44.0); MEAN CORPUSCULAR HGB CONC 33.3 g/dl (32.0-36.5); MEAN CORPUSCULAR VOLUME 96.2 fl (80.0-96.0); MONO # 0.4 10^3/uL (0.0-0.8); NEUTROPHILS % 58.6 % (36.0-66.0); PLATELET COUNT, AUTOMATED 188 10^3/uL (150-450); RED BLOOD COUNT 4.44 10^6/uL (4.00-5.40); WHITE BLOOD COUNT 5.1 10^3/uL (4.0-10.0)
[2020-06-18 16:27] LABS: AMYLASE 61 U/L (25-115); BLOOD UREA NITROGEN 12 MG/DL (7-18); CALCIUM LEVEL 9.3 MG/DL (8.8-10.2); CARBON DIOXIDE LEVEL 34 MEQ/L (21-32); CHLORIDE LEVEL 106 MEQ/L (98-107); CREATININE FOR GFR 0.92 MG/DL (0.55-1.30); GLOMERULAR FILTRATION RATE > 60.0 (>45); GLUCOSE, FASTING 89 MG/DL (70-100); LIPASE 160 U/L (73-393); POTASSIUM SERUM 3.9 MEQ/L (3.5-5.1); SODIUM LEVEL 143 MEQ/L (136-145)
== END ==
LOC: M PLALAB 13:19
PROVIDERS: ATTEND Physician Assistant
DX: R10.10 Upper abdominal pain, unspecified (principal)

== ENCOUNTER → 2020-08-30 | Outpatient (CLI) | payer MEDICARE, OTHER ==
[2020-08-30 14:00] LABS: BASO % 0.6 % (0.0-1.0); EOS # 0.1 10^3/uL (0.0-0.5); EOS % 2.3 % (0.0-3.0); HEMATOCRIT 44.6 % (36.0-47.0); HEMOGLOBIN 14.9 g/dl (12.0-15.5); LYMPH # 1.8 10^3/uL (1.5-5.0); MEAN CORPUSCULAR HEMOGLOBIN 31.9 pg (27.0-33.0); MEAN CORPUSCULAR HGB CONC 33.4 g/dl (32.0-36.5); MEAN CORPUSCULAR VOLUME 95.5 fl (80.0-96.0); MONO # 0.3 10^3/uL (0.0-0.8); NEUTROPHILS # 2.6 10^3/uL (1.5-8.5); NEUTROPHILS % 52.9 % (36.0-66.0); PLATELET COUNT, AUTOMATED 189 10^3/uL (150-450); RED BLOOD COUNT 4.67 10^6/uL (4.00-5.40); WHITE BLOOD COUNT 4.8 10^3/uL (4.0-10.0)
[2020-08-30 14:37] LABS: ERYTHROCYTE SEDIMENTATION RATE 2 mm/hr (0-30)
[2020-08-30 14:45] LABS: ALBUMIN 3.7 GM/DL (3.2-5.2); ALT/SGPT 51 U/L (12-78); BILIRUBIN,TOTAL 0.9 MG/DL (0.2-1.0); BLOOD UREA NITROGEN 14 MG/DL (7-18); CALCIUM LEVEL 9.2 MG/DL (8.8-10.2); CARBON DIOXIDE LEVEL 31 MEQ/L (21-32); CHLORIDE LEVEL 106 MEQ/L (98-107); CPK CREATINE PHOSPHOKINASE 70 U/L (26-192); CREATININE FOR GFR 0.94 MG/DL (0.55-1.30); GLOMERULAR FILTRATION RATE > 60.0 (>45); GLUCOSE, FASTING 110 MG/DL (70-100); POTASSIUM SERUM 4.1 MEQ/L (3.5-5.1); SODIUM LEVEL 141 MEQ/L (136-145); TOTAL PROTEIN 6.2 GM/DL (6.4-8.2); TROPONIN I < 0.02 NG/ML (< 0.10)
== END ==
LOC: M PLALAB 11:43
PROVIDERS: ATTEND Physician Assistant
DX: M79.10 Myalgia, unspecified site (principal)

== ENCOUNTER 2020-09-22 07:01 | Emergency (ER) | payer MEDICARE, OTHER ==
[~2020-09-22] VITALS: Ht 157.5 cm; Wt 65.4 kg
[2020-09-22] MEDS ORDERED: ONDA4TAB6 (07:09)
[2020-09-22] MEDS ORDERED: HYDR-3363 (07:09)
[2020-09-22] MEDS ORDERED: METH4PACK (07:09)
[2020-09-22] MEDS ORDERED: ACE65ERTAB PO (07:10)
[2020-09-22] MEDS ORDERED: traMADol 50 MG TAB PO ONE (07:45)
[2020-09-22 08:23] LABS: APPEARANCE, URINE CLEAR (CLEAR); BACTERIA, URINE AUTO NEGATIVE (NEGATIVE); BILIRUBIN, URINE AUTO NEGATIVE (NEGATIVE); BLOOD, URINE BLOOD NEGATIVE (NEGATIVE); COLOR, URINE YELLOW (YELLOW); GLUCOSE, URINE (UA) AUTO NEGATIVE (NEGATIVE); KETONE, URINE AUTO NEGATIVE (NEGATIVE); LEUKOCYTE ESTERASE, URINE AUTO TRACE (NEGATIVE); NITRITE, URINE AUTO NEGATIVE (NEGATIVE); PROTEIN, URINE AUTO NEGATIVE (NEGATIVE); RBC, URINE AUTO 2 /HPF (0-3); SPECIFIC GRAVITY URINE AUTO 1.011 (1.002-1.035); SQUAMOUS EPITHELIAL CELL UR AU 0 /HPF (0-6); UROBILINOGEN, URINE AUTO 0.2 mg/dL (0.0-2.0); WBC, URINE AUTO 1 /HPF (0-3)
[2020-09-22] MEDS ORDERED: ULTR50TA8 PO (08:56)
[2020-09-22 09:10] VITALS: BP 165/73
== END 2020-09-22 09:11 | disposition home or self-care (01) ==
LOC: M ED 07:01
DX: M54.5 Low back pain (principal); M62.830 Muscle spasm of back; Z79.82 Long term (current) use of aspirin; Z79.899 Other long term (current) drug therapy; Z88.0 Allergy status to penicillin; Z88.5 Allergy status to narcotic agent; Z88.8 Allergy status to other drugs, medicaments and biological substances

== ENCOUNTER → 2020-09-29 | Outpatient (CLI) | payer MEDICARE, OTHER ==
[~2020-09-29] MED LIST changes: +ACE65ERTAB PO; +HYDR-3363; +METH4PACK; +ONDA4TAB6; +ULTR50TA8 PO
--- NOTE | 2020-09-29 16:31 | REPVR ---
PROCEDURE INFORMATION: Exam: MR Cervical Spine Without Contrast Exam date and time: 09/29/2020 3:54 PM Age: 65 years old Clinical indication: Neck pain; Additional info: Other cervical disc degeneration, unsp cervical region TECHNIQUE: Imaging protocol: Multiplanar magnetic resonance images of the cervical spine without contrast. COMPARISON: CR SPINE LS W/BENDING 11/26/2017 6:29 PM FINDINGS: Vertebrae: Unremarkable. Spinal cord: Normal signal. No cord compression. C2-C3: No significant disc disease. No significant spinal stenosis. C3-C4: There is disc desiccation. There is a moderate disc/osteophyte complex, partial toward the right, that flattens the ventral thecal sac and compromises the right neural foramen. There is bilateral uncovertebral joint arthropathy, worse on the right. There is mild right-sided neuroforaminal narrowing. C4-C5: There is disc desiccation. There is mild ventral ridging which flattens the ventral thecal sac. C5-C6: There is disc desiccation. There is a moderate disc/osteophyte complex that flattens the ventral thecal sac. There is moderate bilateral uncovertebral joint arthropathy. C6-C7: There is degenerative disc disease including disc space narrowing and dessication. There is a moderate disc/osteophyte complex that flattens the ventral thecal sac. There is bilateral uncovertebral joint arthropathy, worse on the right. There is mild/moderate bilateral neuroforaminal narrowing, right worse than left. C7-T1: No significant disc disease. No significant spinal stenosis. Soft tissues: Unremarkable. Paranasal sinuses: There is a retention cyst/polyp in the right maxillary sinus. IMPRESSION: Multilevel degenerative changes with variable degrees of spinal canal and neuroforaminal narrowing. Electronically signed by: Eliel Addison On 09/29/2020 16:31:29 PM
--- NOTE | 2020-09-29 16:37 | REPVR ---
PROCEDURE INFORMATION: Exam: MR Lumbar Spine Without Contrast Exam date and time: 09/29/2020 3:54 PM Age: 65 years old Clinical indication: Low back pain; Additional info: Other disc degeneration, lumbar region TECHNIQUE: Imaging protocol: Multiplanar magnetic resonance images of the lumbar spine without intravenous contrast. COMPARISON: CR SPINE LS W/BENDING 11/26/2017 6:29 PM FINDINGS: Vertebrae: Unremarkable. Spinal cord: Normal signal. No cord compression. L1-L2: There is a small left subarticular disc protrusion. There is compromise of the left lateral recess. There is mild left-sided neuroforaminal narrowing. L2-L3: No significant disc disease. No significant spinal canal stenosis. No neural foraminal stenosis. L3-L4: No significant disc disease. No significant spinal canal stenosis. No neural foraminal stenosis. L4-L5: There is degenerative disc disease including disc space narrowing and dessication. There is a superimposed right foraminal disc herniation. There is moderate right-sided neuroforaminal narrowing. There is facet arthropathy and ligamentum flavum hypertrophy. There is mild spinal canal stenosis. L5-S1: There is disc space narrowing and desiccation. There are moderate degenerative end plate changes at this level. There is mild disc bulging. Disc bulging extends into both neural foramen causing mild bilateral neural foraminal narrowing. There is facet arthropathy and ligamentum flavum hypertrophy. Soft tissues: Unremarkable. IMPRESSION: Multilevel degenerative changes causing variable degrees of spinal canal and neuroforaminal narrowing as described above. Electronically signed by: Eliel Addison On 09/29/2020 16:37:14 PM
== END ==
LOC: M RAD 14:59
PROVIDERS: ATTEND Physician Assistant
DX: M50.31 Other cervical disc degeneration, high cervical region (principal); M50.321 Other cervical disc degeneration at C4-C5 level; M50.322 Other cervical disc degeneration at C5-C6 level; M50.323 Other cervical disc degeneration at C6-C7 level; M51.36 Other intervertebral disc degeneration, lumbar region

== ENCOUNTER → 2020-10-04 | Outpatient (CLI) | payer MEDICARE, OTHER ==
[2020-10-04 11:51] LABS: HEMATOCRIT 43.7 % (36.0-47.0); HEMOGLOBIN 14.1 g/dl (12.0-15.5); MEAN CORPUSCULAR HEMOGLOBIN 30.8 pg (27.0-33.0); MEAN CORPUSCULAR HGB CONC 32.3 g/dl (32.0-36.5); MEAN CORPUSCULAR VOLUME 95.4 fl (80.0-96.0); PLATELET COUNT, AUTOMATED 178 10^3/uL (150-450); RED BLOOD COUNT 4.58 10^6/uL (4.00-5.40); WHITE BLOOD COUNT 5.5 10^3/uL (4.0-10.0)
[2020-10-04 12:29] LABS: ALBUMIN 3.7 GM/DL (3.2-5.2); ALT/SGPT 43 U/L (12-78); BILIRUBIN,TOTAL 0.7 MG/DL (0.2-1.0); BLOOD UREA NITROGEN 13 MG/DL (7-18); CALCIUM LEVEL 9.2 MG/DL (8.8-10.2); CARBON DIOXIDE LEVEL 32 MEQ/L (21-32); CHLORIDE LEVEL 108 MEQ/L (98-107); CORTISOL AM 11.1 UG/DL (4.3-22.4); CREATININE FOR GFR 0.83 MG/DL (0.55-1.30); FREE T4 0.81 NG/DL (0.76-1.46); GLOMERULAR FILTRATION RATE > 60.0 (>45); GLUCOSE, FASTING 107 MG/DL (70-100); POTASSIUM SERUM 4.3 MEQ/L (3.5-5.1); SODIUM LEVEL 142 MEQ/L (136-145); THYROID STIMULATING HORMONE 0.879 uIU/ML (0.358-3.740); TOTAL 25(OH) VITAMIN D 36.7 NG/ML (30.0-100.0); TOTAL T3 121.8 NG/DL (60.0-181.0)
== END ==
LOC: M PLALAB 08:07
PROVIDERS: ATTEND Nurse Practitioner Adult Health
DX: Z79.899 Other long term (current) drug therapy (principal)

== ENCOUNTER → 2020-12-21 | Outpatient (CLI) | payer MEDICARE, OTHER ==
--- NOTE | 2020-12-21 09:43 | REP ---
INDICATION: PAIN IN LEFT SHOULDER. COMPARISON: Comparison is made with prior chest x-ray from July 15, 2019.. TECHNIQUE: Three views of the thoracic spine are provided. FINDINGS: Thoracic vertebral body heights are preserved. Alignment is normal. There is mild degenerative disc disease in the midthoracic spine with anterior spurring and some disc space narrowing. There is diffuse osteopenia. Pedicles and posterior elements are intact. No paravertebral soft tissue mass is seen. There is a granulomatous calcification projecting over the diaphragm in the right lung base. There are clips in right upper quadrant the abdomen. IMPRESSION: Diffuse osteopenia and degenerative disc disease changes. No fracture or collapse is seen. No acute bony abnormality. <Electronically signed by Ebenezer Joyce > 12/21/20 [id number]
--- NOTE | 2020-12-21 09:48 | REP ---
INDICATION: PAIN IN LEFT SHOULDER. COMPARISON: Right shoulder 11/29/2019 TECHNIQUE: Three views FINDINGS: Left shoulder: There is no abnormal widening of the AC joint. Inferior spurring from the acromion noted. No clavicular fracture or elevation of the clavicle. Glenohumeral joint intact. The ribs, scapula, humerus and clavicle are unremarkable. Right shoulder: There is no widening of the AC joint. Small inferior spurring from the acromion at that joint with no elevation of the clavicle or fracture there of. The visualized ribs scapula and humerus are also without fracture. Glenohumeral joint intact. No abnormal soft tissue calcifications. IMPRESSION: 1. Mild AC joint arthritis bilaterally without widening of the AC joint or elevation of the clavicles. Small inferior spurs from the acromion at that joint on each side. No other significant finding. <Electronically signed by Jorge Luis Vann > 12/21/20 [id number]
[2020-12-21 11:42] LABS: BASO % 0.8 % (0.0-1.0); EOS # 0.1 10^3/uL (0.0-0.5); EOS % 2.2 % (0.0-3.0); HEMATOCRIT 45.1 % (36.0-47.0); LYMPH # 1.6 10^3/uL (1.5-5.0); LYMPH % 30.8 % (24.0-44.0); MEAN CORPUSCULAR HEMOGLOBIN 31.4 pg (27.0-33.0); MEAN CORPUSCULAR HGB CONC 33.3 g/dl (32.0-36.5); MEAN CORPUSCULAR VOLUME 94.4 fl (80.0-96.0); MONO # 0.3 10^3/uL (0.0-0.8); MONO % 6.2 % (2.0-8.0); NEUTROPHILS % 59.6 % (36.0-66.0); PLATELET COUNT, AUTOMATED 179 10^3/uL (150-450); RED BLOOD COUNT 4.78 10^6/uL (4.00-5.40)
[2020-12-21 12:18] LABS: BILIRUBIN,TOTAL 1.3 MG/DL (0.2-1.0); CALCIUM LEVEL 9.2 MG/DL (8.8-10.2); CHOLESTEROL RISK RATIO 2.259 (<5); FREE T4 0.93 NG/DL (0.76-1.46); GLOMERULAR FILTRATION RATE 59.2 (>45); POTASSIUM SERUM 4.3 MEQ/L (3.5-5.1); THYROID STIMULATING HORMONE 0.889 uIU/ML (0.358-3.740); TOTAL PROTEIN 6.3 GM/DL (6.4-8.2)
[2020-12-21 12:20] LABS: TOTAL 25(OH) VITAMIN D 40.5 NG/ML (30.0-100.0)
== END ==
LOC: M PLAIMG 08:15
PROVIDERS: ATTEND Family Medicine
DX: M25.512 Pain in left shoulder (principal); M25.511 Pain in right shoulder; I25.10 Atherosclerotic heart disease of native coronary artery without angina pectoris; K21.9 Gastro-esophageal reflux disease without esophagitis; E78.00 Pure hypercholesterolemia, unspecified; R53.83 Other fatigue; M19.011 Primary osteoarthritis, right shoulder; M19.012 Primary osteoarthritis, left shoulder; M75.81 Other shoulder lesions, right shoulder; M75.82 Other shoulder lesions, left shoulder; M85.88 Other specified disorders of bone density and structure, other site; M51.34 Other intervertebral disc degeneration, thoracic region

== ENCOUNTER → 2021-01-16 | Outpatient (CLI) | payer MEDICARE, OTHER ==
--- NOTE | 2021-01-16 16:55 | DEXAMM ---
INDICATION: M85.80 [facility] DISRD OF BONE DENSITY AND STRUCTURE. COMPARISON: The most recent comparison study November 08, 2014 and the most remote December 07, 2001. TECHNIQUE: Bone density was measured using dual-energy x-ray absorptionmetry (DEXA). FINDINGS: AP SPINE L1-L4 BMD 0.999 g/cm2 Young Adult T-Score -1.5 Age Matched Z-Score 0.1. LT FEMUR, TOTAL BMD 0.884 g/cm2 Young Adult T-Score -1.0 Age Matched Z-Score 0.3. LT NECK BMD 0.831 g/cm2 Young Adult T-Score -1.5 Age Matched Z-Score 0.0. RT FEMUR, TOTAL BMD 0.901 g/cm2 Young Adult T-Score -0.8 Age Matched Z-Score 0.4. RT NECK BMD 0.792 g/cm2 Young Adult T-Score -1.8 Age Matched Z-Score -0.3. IMPRESSION: There is low bone density of the spine. There is low bone density of the left hip. There is low bone density of the right hip. The density of the spine has decreased 8.2% since the initial exam on December 07, 2001. The density of the spine decreased 1.0% since most recent exam on November 08, 2014. The density of the left hip has decreased 1.1% since initial exam on December 07, 2001. The density of the left hip has decreased 0.5% since most recent exam on November 08, 2014. The density of the right hip has increased 0.7% since the initial exam on December 07, 2001. The density of the right hip has decreased 3.2% since the most recent exam on November 08, 2014. FOLLOW-UP: Recommendation for the next bone density exam: 2-5 years. <Electronically signed by Ebenezer Joyce > 01/16/21 [id number]
== END ==
LOC: M WHC 15:18
PROVIDERS: ATTEND Family Medicine
DX: M85.88 Other specified disorders of bone density and structure, other site (principal); M85.851 Other specified disorders of bone density and structure, right thigh; M85.852 Other specified disorders of bone density and structure, left thigh

== ENCOUNTER → 2021-02-21 | Outpatient (CLI) | payer MEDICARE, OTHER ==
[2021-02-21 15:39] LABS: BASO # 0.1 10^3/uL (0.0-0.2); EOS # 0.1 10^3/uL (0.0-0.5); EOS % 2.1 % (0.0-3.0); HEMATOCRIT 44.4 % (36.0-47.0); HEMOGLOBIN 14.9 g/dl (12.0-15.5); LYMPH # 1.6 10^3/uL (1.5-5.0); LYMPH % 33.6 % (24.0-44.0); MEAN CORPUSCULAR HEMOGLOBIN 31.4 pg (27.0-33.0); MEAN CORPUSCULAR HGB CONC 33.6 g/dl (32.0-36.5); MEAN CORPUSCULAR VOLUME 93.7 fl (80.0-96.0); MONO # 0.3 10^3/uL (0.0-0.8); MONO % 5.4 % (2.0-8.0); NEUTROPHILS # 2.8 10^3/uL (1.5-8.5); NEUTROPHILS % 57.7 % (36.0-66.0); PLATELET COUNT, AUTOMATED 175 10^3/uL (150-450); RED BLOOD COUNT 4.74 10^6/uL (4.00-5.40); WHITE BLOOD COUNT 4.9 10^3/uL (4.0-10.0)
[2021-02-21 16:26] LABS: ALBUMIN 3.7 GM/DL (3.2-5.2); ALT/SGPT 60 U/L (12-78); BILIRUBIN,TOTAL 0.9 MG/DL (0.2-1.0); BLOOD UREA NITROGEN 15 MG/DL (7-18); CARBON DIOXIDE LEVEL 32 MEQ/L (21-32); CHLORIDE LEVEL 107 MEQ/L (98-107); CREATININE FOR GFR 0.98 MG/DL (0.55-1.30); GLOMERULAR FILTRATION RATE > 60.0 (>45); GLUCOSE, FASTING 96 MG/DL (70-100); POTASSIUM SERUM 4.4 MEQ/L (3.5-5.1); SODIUM LEVEL 141 MEQ/L (136-145); THYROID STIMULATING HORMONE 0.987 uIU/ML (0.358-3.740); TOTAL PROTEIN 6.4 GM/DL (6.4-8.2)
== END ==
LOC: M PLALAB 11:40
DX: R53.83 Other fatigue (principal)

== ENCOUNTER → 2021-03-06 | Outpatient (CLI) | payer MEDICARE, OTHER ==
--- NOTE | 2021-03-06 12:40 | REP ---
INDICATION: SACROILIITIS, NOT ELSEWHERE CLASSIFIED Nontraumatic hip pain. COMPARISON: None. TECHNIQUE: Frontal view of the pelvis with neutral and frog lateral views of the right hip. FINDINGS: There is no evidence for acute fracture or dislocation. The bilateral hips demonstrate age-related changes including mild increased sclerosis to the acetabular roof with minimal joint space narrowing. No further overt osteoarthritic findings noted. IMPRESSION: Essentially normal age-appropriate pelvis and right hip series. <Electronically signed by Leonides Sosa > 03/06/21 [id number]
[2021-03-06 17:31] LABS: APPEARANCE, URINE CLEAR (CLEAR); BACTERIA, URINE AUTO NEGATIVE (NEGATIVE); BILIRUBIN, URINE AUTO NEGATIVE (NEGATIVE); BLOOD, URINE BLOOD NEGATIVE (NEGATIVE); COLOR, URINE STRAW (YELLOW); GLUCOSE, URINE (UA) AUTO NEGATIVE (NEGATIVE); KETONE, URINE AUTO NEGATIVE (NEGATIVE); LEUKOCYTE ESTERASE, URINE AUTO NEGATIVE (NEGATIVE); NITRITE, URINE AUTO NEGATIVE (NEGATIVE); PROTEIN, URINE AUTO NEGATIVE (NEGATIVE); RBC, URINE AUTO 0 /HPF (0-3); SPECIFIC GRAVITY URINE AUTO 1.004 (1.002-1.035); SQUAMOUS EPITHELIAL CELL UR AU 0 /HPF (0-6); UROBILINOGEN, URINE AUTO 0.2 mg/dL (0.0-2.0); WBC, URINE AUTO 0 /HPF (0-3)
== END ==
LOC: M PLAIMG 12:04
PROVIDERS: ATTEND Physician Assistant
DX: R31.29 Other microscopic hematuria (principal); M46.1 Sacroiliitis, not elsewhere classified

== ENCOUNTER → 2021-07-16 | Outpatient (CLI) | payer MEDICARE, OTHER ==
[2021-07-16 13:59] LABS: BASO % 0.6 % (0.0-1.0); EOS # 0.1 10^3/uL (0.0-0.5); EOS % 2.1 % (0.0-3.0); LYMPH # 1.5 10^3/uL (1.5-5.0); MEAN CORPUSCULAR HEMOGLOBIN 31.4 pg (27.0-33.0); MEAN CORPUSCULAR HGB CONC 33.3 g/dl (32.0-36.5); MEAN CORPUSCULAR VOLUME 94.1 fl (80.0-96.0); MONO # 0.4 10^3/uL (0.0-0.8); MONO % 6.7 % (2.0-8.0); NEUTROPHILS # 3.3 10^3/uL (1.5-8.5); NEUTROPHILS % 62.2 % (36.0-66.0); PLATELET COUNT, AUTOMATED 200 10^3/uL (150-450); RED BLOOD COUNT 4.78 10^6/uL (4.00-5.40); WHITE BLOOD COUNT 5.4 10^3/uL (4.0-10.0)
[2021-07-16 14:27] LABS: CK-MB VALUE MASS < 1.0 NG/ML (<3.6); CPK CREATINE PHOSPHOKINASE 61 U/L (26-192); MB/CK RELATIVE INDEX 1.64 (< OR =4)
[2021-07-16 14:47] LABS: ALBUMIN 3.8 GM/DL (3.2-5.2); ALT/SGPT 93 U/L (12-78); BILIRUBIN,TOTAL 0.8 MG/DL (0.2-1.0); BLOOD UREA NITROGEN 13 MG/DL (7-18); CALCIUM LEVEL 9.1 MG/DL (8.8-10.2); CARBON DIOXIDE LEVEL 33 MEQ/L (21-32); CHLORIDE LEVEL 105 MEQ/L (98-107); CHOLESTEROL LEVEL 120 MG/DL (<200); CHOLESTEROL RISK RATIO 2.105 (<5); CREATININE FOR GFR 0.93 MG/DL (0.55-1.30); FREE T4 0.85 NG/DL (0.76-1.46); GLOMERULAR FILTRATION RATE > 60.0 (>45); GLUCOSE, FASTING 83 MG/DL (70-100); HDL CHOLESTEROL 57 MG/DL (>40); LDL CHOLESTEROL 49 MG/DL (<100); NON-HDL-C 63 MG/DL; POTASSIUM SERUM 4.2 MEQ/L (3.5-5.1); SODIUM LEVEL 140 MEQ/L (136-145); TOTAL PROTEIN 6.3 GM/DL (6.4-8.2); TRIGLYCERIDES LEVEL 71 MG/DL (<150)
== END ==
LOC: M PLALAB 12:44
PROVIDERS: ATTEND Physician Assistant
DX: I25.10 Atherosclerotic heart disease of native coronary artery without angina pectoris (principal)

== ENCOUNTER → 2021-09-16 | Outpatient (CLI) | payer MEDICARE, OTHER ==
[2021-09-16 13:22] LABS: BASO # 0.1 10^3/uL (0.0-0.2); BASO % 1.1 % (0.0-1.0); EOS # 0.1 10^3/uL (0.0-0.5); EOS % 2.4 % (0.0-3.0); HEMATOCRIT 43.6 % (36.0-47.0); HEMOGLOBIN 14.6 g/dl (12.0-15.5); LYMPH # 1.5 10^3/uL (1.5-5.0); MEAN CORPUSCULAR HEMOGLOBIN 31.7 pg (27.0-33.0); MEAN CORPUSCULAR HGB CONC 33.5 g/dl (32.0-36.5); MEAN CORPUSCULAR VOLUME 94.8 fl (80.0-96.0); MONO # 0.3 10^3/uL (0.0-0.8); MONO % 6.7 % (2.0-8.0); NEUTROPHILS # 2.6 10^3/uL (1.5-8.5); NEUTROPHILS % 56.8 % (36.0-66.0); PLATELET COUNT, AUTOMATED 173 10^3/uL (150-450); WHITE BLOOD COUNT 4.6 10^3/uL (4.0-10.0)
[2021-09-16 14:12] LABS: ALBUMIN 3.5 GM/DL (3.2-5.2); ALT/SGPT 164 U/L (12-78); BILIRUBIN,TOTAL 0.9 MG/DL (0.2-1.0); BLOOD UREA NITROGEN 17 MG/DL (7-18); CALCIUM LEVEL 9.1 MG/DL (8.8-10.2); CARBON DIOXIDE LEVEL 30 MEQ/L (21-32); CHLORIDE LEVEL 107 MEQ/L (98-107); CREATININE FOR GFR 0.98 MG/DL (0.55-1.30); FOLATE > 24.0 NG/ML; FREE T4 0.83 NG/DL (0.76-1.46); GLOMERULAR FILTRATION RATE > 60.0 (>45); GLUCOSE, FASTING 145 MG/DL (70-100); POTASSIUM SERUM 4.2 MEQ/L (3.5-5.1); SODIUM LEVEL 142 MEQ/L (136-145); TOTAL 25(OH) VITAMIN D 41.9 NG/ML (30.0-100.0)
[2021-09-17 16:59] LABS: VITAMIN B12 LEVEL 284 PG/ML
== END ==
LOC: M PLALAB 10:57
PROVIDERS: ATTEND Physician Assistant
DX: R53.83 Other fatigue (principal)

== ENCOUNTER → 2021-11-04 | Outpatient (CLI) | payer MEDICARE, OTHER ==
[2021-11-04 15:31] LABS: BASO % 0.6 % (0.0-1.0); EOS # 0.1 10^3/uL (0.0-0.5); EOS % 2.2 % (0.0-3.0); HEMATOCRIT 42.1 % (36.0-47.0); HEMOGLOBIN 13.8 g/dl (12.0-15.5); LYMPH # 1.6 10^3/uL (1.5-5.0); LYMPH % 34.8 % (24.0-44.0); MEAN CORPUSCULAR HEMOGLOBIN 31.1 pg (27.0-33.0); MEAN CORPUSCULAR HGB CONC 32.8 g/dl (32.0-36.5); MEAN CORPUSCULAR VOLUME 94.8 fl (80.0-96.0); MONO # 0.4 10^3/uL (0.0-0.8); MONO % 8.2 % (2.0-8.0); NEUTROPHILS # 2.5 10^3/uL (1.5-8.5); PLATELET COUNT, AUTOMATED 169 10^3/uL (150-450); RED BLOOD COUNT 4.44 10^6/uL (4.00-5.40); WHITE BLOOD COUNT 4.6 10^3/uL (4.0-10.0)
[2021-11-04 15:39] LABS: ALBUMIN 3.3 GM/DL (3.2-5.2); ALT/SGPT 89 U/L (12-78); BILIRUBIN,TOTAL 0.7 MG/DL (0.2-1.0); BLOOD UREA NITROGEN 15 MG/DL (7-18); CALCIUM LEVEL 8.8 MG/DL (8.8-10.2); CARBON DIOXIDE LEVEL 32 MEQ/L (21-32); CHLORIDE LEVEL 108 MEQ/L (98-107); CREATININE FOR GFR 0.93 MG/DL (0.55-1.30); GLOMERULAR FILTRATION RATE > 60.0 (>45); GLUCOSE, FASTING 92 MG/DL (70-100); POTASSIUM SERUM 4.5 MEQ/L (3.5-5.1); RHEUMATOID FACTOR QUANT < 10.0 IU/ML (<15.0); SODIUM LEVEL 142 MEQ/L (136-145); TOTAL PROTEIN 6.1 GM/DL (6.4-8.2)
[2021-11-04 15:49] LABS: ERYTHROCYTE SEDIMENTATION RATE 2 mm/hr (0-30)
== END ==
LOC: M PLALAB 12:26
PROVIDERS: ATTEND Physician Assistant
DX: M79.10 Myalgia, unspecified site (principal); M51.17 Intervertebral disc disorders with radiculopathy, lumbosacral region

== ENCOUNTER → 2021-11-27 | Outpatient (CLI) | payer MEDICARE, OTHER | LOC: M PLAIMG 07:23 | PROVIDERS: ATTEND Physician Assistant | DX: M51.16 Intervertebral disc disorders with radiculopathy, lumbar region (principal); M79.10 Myalgia, unspecified site; M47.26 Other spondylosis with radiculopathy, lumbar region ==

== ENCOUNTER → 2021-12-25 | Outpatient (CLI) | payer MEDICARE, OTHER ==
[~2021-12-25] MED LIST changes: +CYAN100081; +ECOT81TA5 PO; +LOSA25TA13; +OMEP40CA5
== END ==
LOC: M LABSMTC 09:07
PROVIDERS: ATTEND Anesthesiology
DX: Z01.812 Encounter for preprocedural laboratory examination (principal); Z20.822 Contact with and (suspected) exposure to COVID-19

== ENCOUNTER 2021-12-30 07:06 | Day surgery (SDC) | payer MEDICARE, OTHER ==
[~2021-12-30] VITALS: Ht 157.5 cm; Wt 68.0 kg
[~2021-12-30 07:06] MED LIST changes: +LIDOCAINE 2% 100MG/5ML SDV (FOR ANES.) As Ordered ONE; +NS 1,000 ML IV ONE; +fentaNYL 100 MCG/2 ML INJECTION As Ordered ONE; +propofoL 500 MG/50 ML VIAL As Ordered ONE
[2021-12-30 09:14] VITALS: BP 121/59
== END 2021-12-30 09:30 | disposition home or self-care (01) ==
LOC: M OPP 07:06
PROVIDERS: ATTEND Internal Medicine Gastroenterology
DX: Z12.11 Encounter for screening for malignant neoplasm of colon (principal); K30 Functional dyspepsia; R11.0 Nausea; K64.0 First degree hemorrhoids; K57.30 Diverticulosis of large intestine without perforation or abscess without bleeding; I25.2 Old myocardial infarction; I10 Essential (primary) hypertension; E78.5 Hyperlipidemia, unspecified; K21.9 Gastro-esophageal reflux disease without esophagitis; M19.90 Unspecified osteoarthritis, unspecified site; F41.9 Anxiety disorder, unspecified; F32.A Depression, unspecified; Z95.5 Presence of coronary angioplasty implant and graft; Z88.1 Allergy status to other antibiotic agents; Z88.5 Allergy status to narcotic agent; Z88.8 Allergy status to other drugs, medicaments and biological substances; Z79.82 Long term (current) use of aspirin; Z79.899 Other long term (current) drug therapy
CPT/HCPCS: 43239; 88305; G0121; J3010

== ENCOUNTER → 2022-04-03 | Outpatient (CLI) | payer MEDICARE, OTHER ==
[~2022-04-03] MED LIST changes: +CLOP75TA99 PO; -DOXY-350 PO; +DOXY-444 PO; -LIDOCAINE 2% 100MG/5ML SDV (FOR ANES.) As Ordered ONE; -NS 1,000 ML IV ONE; -PLAV1TAB2 PO; -fentaNYL 100 MCG/2 ML INJECTION As Ordered ONE; -propofoL 500 MG/50 ML VIAL As Ordered ONE
[2022-04-03 18:34] LABS: INR 0.93; PROTHROMBIN TIME 12.6 SECONDS (12.5-14.5)
[2022-04-03 18:56] LABS: ALBUMIN 3.8 GM/DL (3.2-5.2); ALT/SGPT 103 U/L (12-78); BILIRUBIN,TOTAL 0.7 MG/DL (0.2-1.0); BLOOD UREA NITROGEN 16 MG/DL (7-18); CALCIUM LEVEL 9.6 MG/DL (8.8-10.2); CARBON DIOXIDE LEVEL 31 MEQ/L (21-32); CHLORIDE LEVEL 107 MEQ/L (98-107); CREATININE FOR GFR 0.98 MG/DL (0.55-1.30); GLOMERULAR FILTRATION RATE > 60.0 (>45); GLUCOSE, FASTING 102 MG/DL (70-100); IRON (FE) 139 UG/DL (50-170); PERCENT SATURATION 39.3 % (13.2-45.0); POTASSIUM SERUM 4.2 MEQ/L (3.5-5.1); SODIUM LEVEL 141 MEQ/L (136-145); TOTAL IRON BINDING CAPACITY 354 UG/DL (250-450); TOTAL PROTEIN 6.5 GM/DL (6.4-8.2)
[2022-04-04 14:44] LABS: HEP C VIRUS AB INDEX SOURCE PT 0.1 INDEX (0.0-0.8)
== END ==
LOC: M PLALAB 16:17
PROVIDERS: ATTEND Internal Medicine Gastroenterology
DX: R94.5 Abnormal results of liver function studies (principal)

== ENCOUNTER → 2022-04-24 | Outpatient (CLI) | payer MEDICARE, OTHER ==
[2022-04-26 14:07] LABS: ANTI-MITOCHONDRIAL ANTIBODY <20.0 Units (0.0-20.0); LIVER-KIDNEY MICROSOMAL ABY <20.1 Units (0.0-20.0)
== END ==
LOC: M PLALAB 14:08
PROVIDERS: ATTEND Internal Medicine Gastroenterology
DX: R94.5 Abnormal results of liver function studies (principal)

== ENCOUNTER 2022-06-15 04:41 | Emergency (ER) | payer MEDICARE, OTHER ==
[~2022-06-15] VITALS: Ht 157.5 cm; Wt 71.8 kg
[2022-06-15] MEDS ORDERED: ACETAMINOPHEN 325 MG TAB PO ONE (08:00)
[2022-06-15 08:16] VITALS: BP 170/79
[2022-06-15] MEDS ORDERED: NIRMATRELVIR/RITONAVIR CO-PACK (EMERGENCY USE AUTH) PO SCH ×2 (09:00→09:30)
[2022-06-15] MEDS ORDERED: ATIV1TAB10 PO (09:32)
== END 2022-06-15 09:45 | disposition home or self-care (01) ==
LOC: M ED 04:41
DX: U07.1 COVID-19 (principal); I10 Essential (primary) hypertension; F41.9 Anxiety disorder, unspecified; F10.10 Alcohol abuse, uncomplicated; F32.A Depression, unspecified; G43.909 Migraine, unspecified, not intractable, without status migrainosus; Z87.442 Personal history of urinary calculi; Z86.79 Personal history of other diseases of the circulatory system; Z87.42 Personal history of other diseases of the female genital tract; Z95.5 Presence of coronary angioplasty implant and graft; Z88.1 Allergy status to other antibiotic agents; Z88.5 Allergy status to narcotic agent

== ENCOUNTER → 2022-07-28 | Outpatient (CLI) | payer MEDICARE, OTHER ==
[~2022-07-28] MED LIST changes: +ATIV1TAB10 PO
[2022-07-28 15:48] LABS: CHOLESTEROL RISK RATIO 2.81 (<5); HDL CHOLESTEROL 43.4 MG/DL (>40); LDL CHOLESTEROL 61.8 MG/DL (<100)
== END ==
LOC: M PLALAB 09:19
PROVIDERS: ATTEND Physician Assistant
DX: R94.31 Abnormal electrocardiogram [ECG] [EKG] (principal); I25.10 Atherosclerotic heart disease of native coronary artery without angina pectoris

== ENCOUNTER → 2022-08-18 | Outpatient (CLI) | payer MEDICARE, OTHER ==
[2022-08-18 13:22] LABS: BASO # 0.1 10^3/uL (0.0-0.2); BASO % 0.8 % (0.0-1.0); EOS # 0.2 10^3/uL (0.0-0.5); EOS % 2.9 % (0.0-3.0); HEMATOCRIT 46.1 % (36.0-47.0); HEMOGLOBIN 15.1 g/dl (12.0-15.5); LYMPH % 34.1 % (24.0-44.0); MEAN CORPUSCULAR HEMOGLOBIN 31.6 pg (27.0-33.0); MEAN CORPUSCULAR HGB CONC 32.8 g/dl (32.0-36.5); MEAN CORPUSCULAR VOLUME 96.4 fl (80.0-96.0); MONO # 0.4 10^3/uL (0.0-0.8); MONO % 7.5 % (2.0-8.0); NEUTROPHILS # 3.2 10^3/uL (1.5-8.5); NEUTROPHILS % 54.5 % (36.0-66.0); PLATELET COUNT, AUTOMATED 174 10^3/uL (150-450); RED BLOOD COUNT 4.78 10^6/uL (4.00-5.40); WHITE BLOOD COUNT 5.9 10^3/uL (4.0-10.0)
[2022-08-18 13:29] LABS: HEMATOCRIT 45.5 % (36.0-47.0)
[2022-08-18 13:34] LABS: INR 0.88; PARTIAL THROMBOPLASTIN TIME 36.2 SECONDS (24.8-34.2); PROTHROMBIN TIME 12.1 SECONDS (12.5-14.5)
[2022-08-18 14:28] LABS: CPK CREATINE PHOSPHOKINASE 55 U/L (34-145)
[2022-08-18 14:29] LABS: FERRITIN 66.1 NG/ML (7.3-270.7); TOTAL 25(OH) VITAMIN D 51.6 NG/ML (20.0-100.0); VITAMIN B12 LEVEL 780 PG/ML (211-911)
[2022-08-18 14:42] LABS: ALBUMIN 3.9 G/DL (3.2-5.2); ALKALINE PHOSPHATASE 143 U/L (46-116); ALT/SGPT 74 U/L (7.0-40); AST/SGOT 58 U/L (<34); BILIRUBIN,TOTAL 0.7 MG/DL (0.3-1.2); BLOOD UREA NITROGEN 19 MG/DL (9-23); C REACTIVE PROTEIN QUANTITATIV < 0.40 MG/DL (<1.0); CALCIUM LEVEL 9.2 MG/DL (8.3-10.6); CARBON DIOXIDE LEVEL 32 MMOL/L (20-31); CHLORIDE LEVEL 104 MMOL/L (98-107); CREATININE FOR GFR 0.94 MG/DL (0.55-1.30); GLOMERULAR FILTRATION RATE > 60.0 (>45); GLUCOSE, FASTING 95 MG/DL (74-106); MAGNESIUM LEVEL 1.9 MG/DL (1.8-2.4); POTASSIUM SERUM 4.7 MMOL/L (3.5-5.1); SODIUM LEVEL 142 MMOL/L (136-145); TOTAL PROTEIN 6.4 G/DL (5.7-8.2)
[2022-08-18 14:43] LABS: PTH INTACT 65.2 PG/ML (18.5-88.0)
[2022-08-18 19:06] LABS: HEMOGLOBIN A1c 5.3 % (4.0-6.0)
[2022-08-21 00:11] LABS: INSULIN LEVEL 11.6 uIU/mL (2.6-24.9)
== END ==
LOC: M PLALAB 11:45
PROVIDERS: ATTEND Family Medicine
DX: I25.810 Atherosclerosis of coronary artery bypass graft(s) without angina pectoris (principal); E53.8 Deficiency of other specified B group vitamins; E55.9 Vitamin D deficiency, unspecified; K76.0 Fatty (change of) liver, not elsewhere classified; R73.01 Impaired fasting glucose; I10 Essential (primary) hypertension; E78.2 Mixed hyperlipidemia; Z79.899 Other long term (current) drug therapy

== ENCOUNTER → 2022-09-01 | Outpatient (CLI) | payer MEDICARE, OTHER | LOC: M RAD 08:36 | PROVIDERS: ATTEND Internal Medicine Gastroenterology | DX: R94.5 Abnormal results of liver function studies (principal); Z90.49 Acquired absence of other specified parts of digestive tract ==

== ENCOUNTER → 2022-09-22 | Outpatient (REF) | payer MEDICARE, OTHER | LOC: M PLALAB 10:06 | PROVIDERS: ATTEND Nurse Practitioner Family | DX: Z12.4 Encounter for screening for malignant neoplasm of cervix (principal) ==

== ENCOUNTER → 2022-09-24 | Outpatient (CLI) | payer MEDICARE, OTHER | LOC: M SLEEP HO 11:06 | PROVIDERS: ATTEND Family Medicine | DX: R40.0 Somnolence (principal) ==

== ENCOUNTER → 2022-10-27 | Outpatient (CLI) | payer MEDICARE, OTHER ==
[~2022-10-27] MED LIST changes: +MACR100C43 PO; +REGL10TA6 PO
== END ==
LOC: M WHC 13:20
PROVIDERS: ATTEND Nurse Practitioner Family
DX: R10.2 Pelvic and perineal pain (principal); N84.1 Polyp of cervix uteri; R18.8 Other ascites

== ENCOUNTER 2022-10-28 13:39 | Emergency (ER) | payer MEDICARE, OTHER ==
[~2022-10-28] VITALS: Ht 157.5 cm; Wt 70.3 kg
[~2022-10-28 13:39] MED LIST changes: -MACR100C43 PO; -REGL10TA6 PO
[2022-10-28] MEDS ORDERED: METOCLOPRAMIDE INJ 10MG/2ML VIAL IV ONE (20:00)
[2022-10-28] MEDS ORDERED: clonazePAM 0.5 MG TAB PO ONE (20:00)
[2022-10-28] MEDS ORDERED: FAMOTIDINE 20MG/2ML VIAL IVP ONE (20:00)
[2022-10-28] MEDS ORDERED: NS 1,000 ML IV ONE (20:00)
[2022-10-28 21:10] LABS: BASO % 0.1 % (0.0-1.0); EOS % 0.1 % (0.0-3.0); HEMATOCRIT 44.2 % (36.0-47.0); HEMOGLOBIN 15.3 g/dl (12.0-15.5); LYMPH # 0.6 10^3/uL (1.5-5.0); LYMPH % 8.3 % (24.0-44.0); MEAN CORPUSCULAR HEMOGLOBIN 32.4 pg (27.0-33.0); MEAN CORPUSCULAR HGB CONC 34.6 g/dl (32.0-36.5); MEAN CORPUSCULAR VOLUME 93.6 fl (80.0-96.0); MONO # 0.3 10^3/uL (0.0-0.8); MONO % 3.4 % (2.0-8.0); NEUTROPHILS # 6.8 10^3/uL (1.5-8.5); NEUTROPHILS % 87.8 % (36.0-66.0); PLATELET COUNT, AUTOMATED 203 10^3/uL (150-450); RED BLOOD COUNT 4.72 10^6/uL (4.00-5.40); WHITE BLOOD COUNT 7.7 10^3/uL (4.0-10.0)
[2022-10-28 21:30] LABS: LIPASE 26 U/L (12-53)
[2022-10-28 21:32] LABS: ALBUMIN 3.7 G/DL (3.2-5.2); ALKALINE PHOSPHATASE 111 U/L (46-116); ALT/SGPT 61 U/L (7.0-40); AST/SGOT 51 U/L (<34); BILIRUBIN,DIRECT 0.3 MG/DL (<0.4); BILIRUBIN,TOTAL 1.1 MG/DL (0.3-1.2); BLOOD UREA NITROGEN 20 MG/DL (9-23); CALCIUM LEVEL 8.6 MG/DL (8.3-10.6); CARBON DIOXIDE LEVEL 29 MMOL/L (20-31); CHLORIDE LEVEL 105 MMOL/L (98-107); CREATININE FOR GFR 0.83 MG/DL (0.55-1.30); GLOMERULAR FILTRATION RATE > 60.0 (>45); GLUCOSE, FASTING 116 MG/DL (74-106); POTASSIUM SERUM 4.1 MMOL/L (3.5-5.1); SODIUM LEVEL 143 MMOL/L (136-145); TOTAL PROTEIN 6.1 G/DL (5.7-8.2)
[2022-10-28] MEDS ORDERED: ACETAMINOPHEN 500 MG TAB PO ONE (22:45)
[2022-10-28] MEDS ORDERED: REGL10TA6 PO (23:17)
[2022-10-28] MEDS ORDERED: MACR100C43 PO (23:38)
[2022-10-28 23:51] VITALS: BP 150/80; TEMP 98.9; O2SAT 99
== END 2022-10-28 23:54 | disposition home or self-care (01) ==
LOC: M ED 13:39
DX: S00.83XA Contusion of other part of head, initial encounter (principal); S20.212A Contusion of left front wall of thorax, initial encounter; S80.01XA Contusion of right knee, initial encounter; A08.4 Viral intestinal infection, unspecified; N39.0 Urinary tract infection, site not specified; W19.XXXA Unspecified fall, initial encounter; Y92.814 Boat as the place of occurrence of the external cause; I25.2 Old myocardial infarction; I10 Essential (primary) hypertension; K57.92 Diverticulitis of intestine, part unspecified, without perforation or abscess without bleeding; Z98.61 Coronary angioplasty status; Z79.82 Long term (current) use of aspirin; Z79.899 Other long term (current) drug therapy; Z88.0 Allergy status to penicillin; Z88.5 Allergy status to narcotic agent; Z88.8 Allergy status to other drugs, medicaments and biological substances
CPT/HCPCS: 70450; 70486; 71101; 72125; 73564; 80048; 80076; 81001; 83690; 85025; 87086; 87486; 87581; 87633; 87798; 96374; 96375; 99283; J2765

== ENCOUNTER → 2022-11-11 | Outpatient (REF) | payer MEDICARE, OTHER ==
[~2022-11-11] MED LIST changes: +MACR100C43 PO; +REGL10TA6 PO
== END ==
LOC: M SFHCWAGY 16:50
PROVIDERS: ATTEND Nurse Practitioner Family
DX: L29.2 Pruritus vulvae (principal)

== ENCOUNTER → 2023-01-02 | Outpatient (CLI) | payer MEDICARE, OTHER | LOC: M PLAIMG 14:25 | PROVIDERS: ATTEND Physician Assistant Surgical | DX: M25.512 Pain in left shoulder (principal); M12.9 Arthropathy, unspecified; M25.412 Effusion, left shoulder; R93.7 Abnormal findings on diagnostic imaging of other parts of musculoskeletal system ==

== ENCOUNTER → 2023-03-30 | Outpatient (CLI) | payer MEDICARE, OTHER ==
[2023-03-30 12:01] LABS: BASO % 0.7 % (0.0-1.0); EOS # 0.2 10^3/uL (0.0-0.5); EOS % 3.4 % (0.0-3.0); HEMATOCRIT 42.7 % (36.0-47.0); HEMOGLOBIN 14.4 g/dl (12.0-15.5); LYMPH # 1.8 10^3/uL (1.5-5.0); LYMPH % 40.1 % (24.0-44.0); MEAN CORPUSCULAR HEMOGLOBIN 32.1 pg (27.0-33.0); MEAN CORPUSCULAR HGB CONC 33.7 g/dl (32.0-36.5); MEAN CORPUSCULAR VOLUME 95.1 fl (80.0-96.0); MONO # 0.4 10^3/uL (0.0-0.8); MONO % 7.9 % (2.0-8.0); NEUTROPHILS # 2.1 10^3/uL (1.5-8.5); NEUTROPHILS % 47.7 % (36.0-66.0); PLATELET COUNT, AUTOMATED 185 10^3/uL (150-450); RED BLOOD COUNT 4.49 10^6/uL (4.00-5.40); WHITE BLOOD COUNT 4.4 10^3/uL (4.0-10.0)
[2023-03-30 12:31] LABS: ALBUMIN 3.6 G/DL (3.2-5.2); BILIRUBIN,TOTAL 1.1 MG/DL (0.3-1.2); CALCIUM LEVEL 8.9 MG/DL (8.3-10.6); CHOLESTEROL RISK RATIO 3.06 (<5); GLOMERULAR FILTRATION RATE 58.7 (>45); HDL CHOLESTEROL 46.6 MG/DL (>40); LDL CHOLESTEROL 81.8 MG/DL (<100); NON-HDL-C 96.4 MG/DL; POTASSIUM SERUM 4.6 MMOL/L (3.5-5.1); TOTAL PROTEIN 5.9 G/DL (5.7-8.2)
[2023-03-30 12:32] LABS: FERRITIN 43.8 NG/ML (7.3-270.7); THYROID STIMULATING HORMONE 1.732 uIU/ML (0.55-4.78)
[2023-03-30 12:33] LABS: FREE T4 0.79 NG/DL (0.89-1.76)
[2023-03-30 13:02] LABS: HEMOGLOBIN A1c 5.2 % (4.0-6.0)
== END ==
LOC: M PLALAB 08:08
PROVIDERS: ATTEND Family Medicine
DX: E55.9 Vitamin D deficiency, unspecified (principal); E78.2 Mixed hyperlipidemia; I10 Essential (primary) hypertension; R73.01 Impaired fasting glucose; Z86.39 Personal history of other endocrine, nutritional and metabolic disease

== ENCOUNTER → 2023-04-20 | Outpatient (CLI) | payer MEDICARE, OTHER | LOC: M PLALAB 11:41 | PROVIDERS: ATTEND Nurse Practitioner Family | DX: R06.02 Shortness of breath (principal) ==

== ENCOUNTER → 2023-06-02 | Outpatient (CLI) | payer MEDICARE, OTHER ==
[2023-06-02 13:49] LABS: BASO # 0.1 10^3/uL (0.0-0.2); BASO % 0.9 % (0.0-1.0); EOS # 0.1 10^3/uL (0.0-0.5); EOS % 1.8 % (0.0-3.0); HEMATOCRIT 43.4 % (36.0-47.0); HEMOGLOBIN 14.1 g/dl (12.0-15.5); LYMPH # 1.6 10^3/uL (1.5-5.0); LYMPH % 29.4 % (24.0-44.0); MEAN CORPUSCULAR HEMOGLOBIN 31.1 pg (27.0-33.0); MEAN CORPUSCULAR HGB CONC 32.5 g/dl (32.0-36.5); MEAN CORPUSCULAR VOLUME 95.8 fl (80.0-96.0); MONO # 0.3 10^3/uL (0.0-0.8); MONO % 5.8 % (2.0-8.0); NEUTROPHILS # 3.4 10^3/uL (1.5-8.5); NEUTROPHILS % 61.9 % (36.0-66.0); PLATELET COUNT, AUTOMATED 229 10^3/uL (150-450); RED BLOOD COUNT 4.53 10^6/uL (4.00-5.40); WHITE BLOOD COUNT 5.5 10^3/uL (4.0-10.0)
[2023-06-02 13:56] LABS: ERYTHROCYTE SEDIMENTATION RATE 2 mm/hr (0-30)
== END ==
LOC: M PLALAB 11:27
PROVIDERS: ATTEND Physician Assistant Medical
DX: U09.9 Post COVID-19 condition, unspecified (principal); S29.012D Strain of muscle and tendon of back wall of thorax, subsequent encounter

== ENCOUNTER → 2023-06-18 | Outpatient (CLI) | payer MEDICARE, OTHER | LOC: M SLEEP 20:00 | PROVIDERS: ATTEND Nurse Practitioner Family | DX: R06.83 Snoring (principal) ==

== ENCOUNTER → 2023-08-25 | Outpatient (CLI) | payer MEDICARE, OTHER ==
[2023-08-25 11:08] LABS: BASO % 0.8 % (0.0-1.0); EOS # 0.1 10^3/uL (0.0-0.5); EOS % 2.3 % (0.0-3.0); HEMATOCRIT 41.6 % (36.0-47.0); HEMOGLOBIN 13.9 g/dl (12.0-15.5); LYMPH % 37.5 % (24.0-44.0); MEAN CORPUSCULAR HEMOGLOBIN 32.2 pg (27.0-33.0); MEAN CORPUSCULAR HGB CONC 33.4 g/dl (32.0-36.5); MEAN CORPUSCULAR VOLUME 96.3 fl (80.0-96.0); MONO # 0.4 10^3/uL (0.0-0.8); MONO % 6.9 % (2.0-8.0); NEUTROPHILS # 2.7 10^3/uL (1.5-8.5); NEUTROPHILS % 52.3 % (36.0-66.0); PLATELET COUNT, AUTOMATED 181 10^3/uL (150-450); RED BLOOD COUNT 4.32 10^6/uL (4.00-5.40); WHITE BLOOD COUNT 5.2 10^3/uL (4.0-10.0)
[2023-08-25 11:23] LABS: HEMOGLOBIN A1c 5.4 % (4.0-6.0)
[2023-08-25 11:29] LABS: C REACTIVE PROTEIN QUANTITATIV < 0.40 MG/DL (<1.0)
[2023-08-25 11:30] LABS: ALBUMIN 3.8 G/DL (3.2-5.2); ALKALINE PHOSPHATASE 101 U/L (46-116); ALT/SGPT 24 U/L (7.0-40); AST/SGOT 27 U/L (<34); BILIRUBIN,TOTAL 0.7 MG/DL (0.3-1.2); BLOOD UREA NITROGEN 16 MG/DL (9-23); CARBON DIOXIDE LEVEL 30 MMOL/L (20-31); CHLORIDE LEVEL 109 MMOL/L (98-107); CPK CREATINE PHOSPHOKINASE 88 U/L (34-145); CREATININE FOR GFR 0.79 MG/DL (0.55-1.30); GLOMERULAR FILTRATION RATE > 60.0 (>45); GLUCOSE, FASTING 109 MG/DL (74-106); POTASSIUM SERUM 4.1 MMOL/L (3.5-5.1); SODIUM LEVEL 143 MMOL/L (136-145); TOTAL PROTEIN 5.8 G/DL (5.7-8.2)
[2023-08-25 11:32] LABS: FERRITIN 33.1 NG/ML (7.3-270.7)
[2023-08-27 19:10] LABS: INSULIN LEVEL 13.7 uIU/mL (2.6-24.9)
== END ==
LOC: M PLALAB 08:29
PROVIDERS: ATTEND Family Medicine
DX: E78.2 Mixed hyperlipidemia (principal); I10 Essential (primary) hypertension; E53.8 Deficiency of other specified B group vitamins; R73.01 Impaired fasting glucose; E55.9 Vitamin D deficiency, unspecified; Z86.39 Personal history of other endocrine, nutritional and metabolic disease

== ENCOUNTER → 2023-09-01 | Outpatient (CLI) | payer MEDICARE, OTHER | LOC: M PLALAB 13:08 | PROVIDERS: ATTEND Family Medicine | DX: M47.816 Spondylosis without myelopathy or radiculopathy, lumbar region (principal) ==

== ENCOUNTER → 2023-09-24 | Outpatient (REF) | payer MEDICARE, OTHER ==
[~2023-09-24] MED LIST changes: +DOXY-440 PO; -DOXY-444 PO
== END ==
LOC: M SFHCWAGY 12:37
PROVIDERS: ATTEND Nurse Practitioner Family
DX: R35.0 Frequency of micturition (principal)

== ENCOUNTER → 2024-03-03 | Outpatient (CLI) | payer MEDICARE, OTHER ==
[~2024-03-03] MED LIST changes: +ONDA-282; -ONDA4TAB6
[2024-03-03 10:35] LABS: BASO % 0.8 % (0.0-1.0); EOS # 0.1 10^3/uL (0.0-0.5); EOS % 2.5 % (0.0-3.0); HEMATOCRIT 43.2 % (36.0-47.0); HEMOGLOBIN 14.8 g/dl (12.0-15.5); LYMPH # 1.8 10^3/uL (1.5-5.0); LYMPH % 35.9 % (24.0-44.0); MEAN CORPUSCULAR HEMOGLOBIN 32.2 pg (27.0-33.0); MEAN CORPUSCULAR HGB CONC 34.3 g/dl (32.0-36.5); MEAN CORPUSCULAR VOLUME 94.1 fl (80.0-96.0); MONO # 0.4 10^3/uL (0.0-0.8); MONO % 8.2 % (2.0-8.0); NEUTROPHILS # 2.7 10^3/uL (1.5-8.5); NEUTROPHILS % 52.4 % (36.0-66.0); PLATELET COUNT, AUTOMATED 185 10^3/uL (150-450); RED BLOOD COUNT 4.59 10^6/uL (4.00-5.40); WHITE BLOOD COUNT 5.1 10^3/uL (4.0-10.0)
[2024-03-03 13:49] LABS: ALBUMIN 3.8 G/DL (3.2-5.2); ALKALINE PHOSPHATASE 92 U/L (46-116); ALT/SGPT 23 U/L (7.0-40); AST/SGOT 27 U/L (<34); BILIRUBIN,TOTAL 0.8 MG/DL (0.3-1.2); BLOOD UREA NITROGEN 19 MG/DL (9-23); CALCIUM LEVEL 9.7 MG/DL (8.3-10.6); CARBON DIOXIDE LEVEL 30 MMOL/L (20-31); CHLORIDE LEVEL 108 MMOL/L (98-107); CHOLESTEROL LEVEL 176 MG/DL (<200); CHOLESTEROL RISK RATIO 3.01 (<5); CREATININE FOR GFR 0.88 MG/DL (0.55-1.30); FREE T4 0.99 NG/DL (0.89-1.76); GLOMERULAR FILTRATION RATE > 60.0 (>45); GLUCOSE, FASTING 99 MG/DL (74-106); HDL CHOLESTEROL 58.3 MG/DL (>40); LDL CHOLESTEROL 98.5 MG/DL (<100); NON-HDL-C 117.7 MG/DL; POTASSIUM SERUM 4.5 MMOL/L (3.5-5.1); SODIUM LEVEL 141 MMOL/L (136-145); THYROID STIMULATING HORMONE 0.924 uIU/ML (0.55-4.78); TOTAL PROTEIN 6.3 G/DL (5.7-8.2); TRIGLYCERIDES LEVEL 96 MG/DL (<150)
[2024-03-03 14:05] LABS: HEMOGLOBIN A1c 5.3 % (4.0-6.0)
[2024-03-07 09:43] LABS: INSULIN LEVEL 12.5 uIU/mL (<=18.4)
== END ==
LOC: M PLALAB 09:09
PROVIDERS: ATTEND Family Medicine
DX: I10 Essential (primary) hypertension (principal); E78.2 Mixed hyperlipidemia; D50.9 Iron deficiency anemia, unspecified; R73.01 Impaired fasting glucose

== ENCOUNTER → 2024-04-07 | Outpatient (REF) | payer MEDICARE, OTHER ==
[~2024-04-07] MED LIST changes: +ATOR-398 PO; -LIPI80TA PO
[2024-04-07 13:09] LABS: HEMATOCRIT 42.9 % (36.0-47.0); HEMOGLOBIN 14.3 g/dl (12.0-15.5); MEAN CORPUSCULAR HEMOGLOBIN 31.8 pg (27.0-33.0); MEAN CORPUSCULAR HGB CONC 33.3 g/dl (32.0-36.5); MEAN CORPUSCULAR VOLUME 95.5 fl (80.0-96.0); PLATELET COUNT, AUTOMATED 180 10^3/uL (150-450); RED BLOOD COUNT 4.49 10^6/uL (4.00-5.40); WHITE BLOOD COUNT 4.3 10^3/uL (4.0-10.0)
[2024-04-07 13:13] LABS: ALBUMIN 3.7 G/DL (3.2-5.2); ALKALINE PHOSPHATASE 82 U/L (35-104); ALT/SGPT 26 U/L (7.0-40); AST/SGOT 29 U/L (<34); BLOOD UREA NITROGEN 15 MG/DL (9-23); CALCIUM LEVEL 9.4 MG/DL (8.3-10.6); CARBON DIOXIDE LEVEL 29 MMOL/L (20-31); CHLORIDE LEVEL 108 MMOL/L (98-107); GLOMERULAR FILTRATION RATE > 60.0 (>45); GLUCOSE, FASTING 102 MG/DL (74-106); POTASSIUM SERUM 4.2 MMOL/L (3.5-5.1); SODIUM LEVEL 143 MMOL/L (136-145); TOTAL PROTEIN 6.2 G/DL (5.7-8.2); VITAMIN B12 LEVEL 857 PG/ML (211-911)
[2024-04-07 13:14] LABS: FOLATE > 24.0 NG/ML (>5.4)
[2024-04-12 23:53] LABS: 25-HYDROXY VITAMIN D2 < 8 pg/mL; 25-HYDROXY VITAMIN D3 47 pg/mL; VITAMIN D 1 25 DIHYDROXY 47 pg/mL (18-72)
== END ==
LOC: M SFHCPLAZ 09:56
DX: R25.2 Cramp and spasm (principal); E55.9 Vitamin D deficiency, unspecified

== ENCOUNTER → 2024-07-05 | Outpatient (CLI) | payer MEDICARE, OTHER ==
[2024-07-05 11:04] LABS: BASO # 0.1 10^3/uL (0.0-0.2); BASO % 0.9 % (0.0-1.0); EOS # 0.2 10^3/uL (0.0-0.5); EOS % 3.4 % (0.0-3.0); HEMATOCRIT 42.2 % (36.0-47.0); HEMOGLOBIN 14.4 g/dl (12.0-15.5); LYMPH # 1.8 10^3/uL (1.5-5.0); LYMPH % 33.5 % (24.0-44.0); MEAN CORPUSCULAR HEMOGLOBIN 31.9 pg (27.0-33.0); MEAN CORPUSCULAR HGB CONC 34.1 g/dl (32.0-36.5); MEAN CORPUSCULAR VOLUME 93.6 fl (80.0-96.0); MONO # 0.4 10^3/uL (0.0-0.8); MONO % 7.1 % (2.0-8.0); NEUTROPHILS # 2.9 10^3/uL (1.5-8.5); NEUTROPHILS % 54.7 % (36.0-66.0); PLATELET COUNT, AUTOMATED 220 10^3/uL (150-450); RED BLOOD COUNT 4.51 10^6/uL (4.00-5.40); WHITE BLOOD COUNT 5.3 10^3/uL (4.0-10.0)
[2024-07-05 11:30] LABS: HEMOGLOBIN A1c 5.4 % (4.0-6.0)
[2024-07-05 11:42] LABS: ALBUMIN 3.7 G/DL (3.2-5.2); ALKALINE PHOSPHATASE 91 U/L (35-104); ALT/SGPT 25 U/L (7.0-40); AST/SGOT 26 U/L (<34); BILIRUBIN,TOTAL 0.7 MG/DL (0.3-1.2); BLOOD UREA NITROGEN 20 MG/DL (9-23); CALCIUM LEVEL 9.2 MG/DL (8.3-10.6); CARBON DIOXIDE LEVEL 31 MMOL/L (20-31); CHLORIDE LEVEL 106 MMOL/L (98-107); CHOLESTEROL LEVEL 207 MG/DL (<200); CHOLESTEROL RISK RATIO 3.81 (<5); CPK CREATINE PHOSPHOKINASE 46 U/L (34-145); CREATININE FOR GFR 0.81 MG/DL (0.55-1.30); GLOMERULAR FILTRATION RATE > 60.0 (>45); GLUCOSE, FASTING 100 MG/DL (74-106); HDL CHOLESTEROL 54.3 MG/DL (>40); LDL CHOLESTEROL 130.1 MG/DL (<100); NON-HDL-C 152.7 MG/DL; POTASSIUM SERUM 4.3 MMOL/L (3.5-5.1); SODIUM LEVEL 145 MMOL/L (136-145); TOTAL PROTEIN 6.4 G/DL (5.7-8.2); TRIGLYCERIDES LEVEL 113 MG/DL (<150)
[2024-07-05 11:43] LABS: FERRITIN 58.4 NG/ML (7.3-270.7); TOTAL 25(OH) VITAMIN D 65.4 NG/ML (20.0-100.0)
[2024-07-05 12:47] LABS: PTH INTACT 61.4 PG/ML (18.5-88.0)
[2024-07-06 17:43] LABS: PROTEIN, TOTAL SO 6.3 g/dL (6.1-8.1)
[2024-07-08 00:17] LABS: TISSUE TRANSGLUTAMINASE IgA < 1.0 U/mL (<15.0)
[2024-07-08 06:43] LABS: ALBUMIN SO 4.2 g/dL (3.8-4.8); ALPHA 1 GLOBULINS SO 0.3 g/dL (0.2-0.3); ALPHA 2 GLOBULINS SO 0.6 g/dL (0.5-0.9); BETA 2 GLOBULIN SO 0.3 g/dL (0.2-0.5); BETA GLOBULIN SO 0.4 g/dL (0.4-0.6); GAMMA GLOBULINS SO 0.5 g/dL (0.8-1.7); SPEP IFE ABN PROTEIN BAND 1 0.2 g/dL (NONE DETECTED)
== END ==
LOC: M PLALAB 07:13
PROVIDERS: ATTEND Family Medicine
DX: E55.9 Vitamin D deficiency, unspecified (principal); I10 Essential (primary) hypertension; R73.01 Impaired fasting glucose; E78.2 Mixed hyperlipidemia; D50.9 Iron deficiency anemia, unspecified

== ENCOUNTER → 2024-09-30 | Outpatient (CLI) | payer MEDICARE, OTHER ==
[2024-09-30 12:04] LABS: CHOLESTEROL RISK RATIO 3.82 (<5); HDL CHOLESTEROL 53.6 MG/DL (>40); NON-HDL-C 151.4 MG/DL
== END ==
LOC: M PLALAB 07:17
PROVIDERS: ATTEND Nurse Practitioner Adult Health
DX: Z51.81 Encounter for therapeutic drug level monitoring (principal); Z79.899 Other long term (current) drug therapy; E78.00 Pure hypercholesterolemia, unspecified

== ENCOUNTER → 2025-01-11 | Outpatient (CLI) | payer MEDICARE, OTHER ==
[~2025-01-11] MED LIST changes: -ACE65ERTAB PO; +ACET-1593 PO
[2025-01-11 11:21] LABS: ALT/SGPT 24.0 U/L (7.0-40); AST/SGOT 35.0 U/L (<34); CHOLESTEROL LEVEL 149.0 MG/DL (<200); CHOLESTEROL RISK RATIO 2.85 (<5); LDL CHOLESTEROL 78.0 MG/DL (<100); NON-HDL-C 96.8 MG/DL; TRIGLYCERIDES LEVEL 94.0 MG/DL (<150)
== END ==
LOC: M PLALAB 07:27
PROVIDERS: ATTEND Nurse Practitioner Adult Health
DX: E78.5 Hyperlipidemia, unspecified (principal)

== ENCOUNTER → 2025-01-11 | Outpatient (CLI) | payer MEDICARE, OTHER ==
[2025-01-11 11:25] LABS: BASO # 0.1 10^3/uL (0.0-0.2); BASO % 0.9 % (0.0-1.0); EOS # 0.1 10^3/uL (0.0-0.5); EOS % 2.4 % (0.0-3.0); LYMPH # 1.6 10^3/uL (1.5-5.0); LYMPH % 30.0 % (24.0-44.0); MONO # 0.3 10^3/uL (0.0-0.8); MONO % 6.2 % (2.0-8.0); NEUTROPHILS # 3.3 10^3/uL (1.5-8.5); NEUTROPHILS % 60.3 % (36.0-66.0); PLATELET COUNT, AUTOMATED 203 10^3/uL (150-450)
[2025-01-11 11:31] LABS: ALT/SGPT 24.0 U/L (7.0-40); AST/SGOT 35.0 U/L (<34); CALCIUM LEVEL 8.9 MG/DL (8.3-10.6); CARBON DIOXIDE LEVEL 30.0 MMOL/L (20-31); CHLORIDE LEVEL 105.0 MMOL/L (98-107); CHOLESTEROL LEVEL 147.0 MG/DL (<200); CHOLESTEROL RISK RATIO 2.79 (<5); CPK CREATINE PHOSPHOKINASE 83.0 U/L (34-145); CREATININE FOR GFR 0.91 MG/DL (0.55-1.30); GLOMERULAR FILTRATION RATE 68.3 (>45); LDL CHOLESTEROL 76.0 MG/DL (<100); NON-HDL-C 94.4 MG/DL; POTASSIUM SERUM 4.6 MMOL/L (3.5-5.1); PTH INTACT 70.4 PG/ML (18.5-88.0); SODIUM LEVEL 145.0 MMOL/L (136-145); TRIGLYCERIDES LEVEL 92.0 MG/DL (<150)
[2025-01-11 11:35] LABS: TOTAL 25(OH) VITAMIN D 71.4 NG/ML (20.0-100.0)
[2025-01-11 12:28] LABS: ESTIMATED AVERAGE GLUCOSE 111.0 MG/DL (60-110)
[2025-01-12 12:37] LABS: FREE KAPPA LIGHT CHAINS SERUM 11.9 mg/L (3.3-19.4); FREE LAMBDA LIGHT CHAINS SERUM 10.4 mg/L (5.7-26.3); KAPPA/LAMBDA RATIO SERUM 1.14 (0.26-1.65)
== END ==
LOC: M PLALAB 07:25
PROVIDERS: ATTEND Family Medicine
DX: I10 Essential (primary) hypertension (principal); E78.2 Mixed hyperlipidemia; R73.01 Impaired fasting glucose; E55.9 Vitamin D deficiency, unspecified; D47.2 Monoclonal gammopathy; E78.00 Pure hypercholesterolemia, unspecified; D50.9 Iron deficiency anemia, unspecified; E78.5 Hyperlipidemia, unspecified

== ENCOUNTER → 2025-03-27 | Outpatient (CLI) | payer MEDICARE, OTHER | LOC: M PLAIMG 16:13 | PROVIDERS: ATTEND Physician Assistant Medical | DX: R20.0 Anesthesia of skin (principal); R20.2 Paresthesia of skin; R25.2 Cramp and spasm; M50.30 Other cervical disc degeneration, unspecified cervical region; M19.012 Primary osteoarthritis, left shoulder ==

== ENCOUNTER → 2025-05-22 | Outpatient (REF) | payer MEDICARE, OTHER ==
[~2025-05-22] MED LIST changes: +ACET-1387 PO; -ACET-1593 PO
[2025-05-22 15:14] LABS: APPEARANCE, URINE CLEAR (CLEAR); BACTERIA, URINE AUTO NEGATIVE (NEGATIVE); BILIRUBIN, URINE AUTO NEGATIVE (NEGATIVE); BLOOD, URINE BLOOD NEGATIVE (NEGATIVE); GLUCOSE, URINE (UA) AUTO NEGATIVE (NEGATIVE); KETONE, URINE AUTO NEGATIVE (NEGATIVE); LEUKOCYTE ESTERASE, URINE AUTO TRACE (NEGATIVE); NITRITE, URINE AUTO NEGATIVE (NEGATIVE); PROTEIN, URINE AUTO NEGATIVE (NEGATIVE); RBC, URINE AUTO 0 /HPF (0-3); SPECIFIC GRAVITY URINE AUTO 1.016 (1.002-1.035); SQUAMOUS EPITHELIAL CELL UR AU 0 /HPF (0-6); UROBILINOGEN, URINE AUTO 0.2 mg/dL (0.0-2.0); WBC, URINE AUTO 2 /HPF (0-3)
== END ==
LOC: M SFHCWAGY 14:44
PROVIDERS: ATTEND Nurse Practitioner Family
DX: N95.0 Postmenopausal bleeding (principal); R30.0 Dysuria